=== PATIENT | female | born 1990 | race Caucasian/White ===

== ENCOUNTER → 2020-08-05 14:50 | Outpatient (BNVA) | payer MEDICAID, SELFPAY | PROVIDERS: PCP Nurse Practitioner Family; Visit Provider Advanced Practice Midwife | DX: N92.6 Irregular menstruation, unspecified (principal); Z32.01 Encounter for pregnancy test, result positive | CPT/HCPCS: 81025; 99212 ==

== ENCOUNTER 2020-08-10 13:19 | Outpatient (REF) | payer MEDICAID, SELFPAY ==
--- NOTE | 2020-08-10 13:24 | US_ITS ---
EXAMINATION: US PELVIS CLINICAL INFORMATION: Pelvic and perineal pain. COMPARISON: None TECHNIQUE: Ultrasound of the pelvis is performed using both transabdominal and transvaginal transducers along with Doppler. Transvaginal imaging is performed due to inadequate visualization transabdominally. FINDINGS: There is anteverted uterus with a small questionable anechoic area within the fundal endometrial canal measuring 0.3 x 0.31 x 0.32 cm corresponding 4 weeks and 6 days. No pole, motion, heart beat or yolk sac seen at this time. This could be too early in . Right ovary measures 3.7 x 1.8 x 2.0 cm. There is anechoic cyst measuring 0.9 x 1.0 x 0.9 cm. Left ovary measures 2.6 x 1.7 x 2.4 cm. The left ovary has a irregular appearance. No focal lesion seen. There is no adnexal mass. There is no free fluid in the cul-de-sac. US/US transvaginal IMPRESSION: 1. Anechoic cyst in the fundus likely gestational sac, too early in . No pole or yolk sac seen. Recommend follow-up ultrasound in 2-4 weeks. 2. Small cyst right ovary. Unremarkable left ovary. 3. No free fluid in cul-de-sac.
--- NOTE | 2020-08-10 13:24 | US_ITS ---
EXAMINATION: US PELVIS CLINICAL INFORMATION: Pelvic and perineal pain. COMPARISON: None TECHNIQUE: Ultrasound of the pelvis is performed using both transabdominal and transvaginal transducers along with Doppler. Transvaginal imaging is performed due to inadequate visualization transabdominally. FINDINGS: There is anteverted uterus with a small questionable anechoic area within the fundal endometrial canal measuring 0.3 x 0.31 x 0.32 cm corresponding 4 weeks and 6 days. No pole, motion, heart beat or yolk sac seen at this time. This could be too early in . Right ovary measures 3.7 x 1.8 x 2.0 cm. There is anechoic cyst measuring 0.9 x 1.0 x 0.9 cm. Left ovary measures 2.6 x 1.7 x 2.4 cm. The left ovary has a irregular appearance. No focal lesion seen. There is no adnexal mass. There is no free fluid in the cul-de-sac. US/US OB limited IMPRESSION: 1. Anechoic cyst in the fundus likely gestational sac, too early in . No pole or yolk sac seen. Recommend follow-up ultrasound in 2-4 weeks. 2. Small cyst right ovary. Unremarkable left ovary. 3. No free fluid in cul-de-sac.
== END 2020-08-10 13:20 | disposition home or self-care (01) ==
LOC: HO.US 13:19
PROVIDERS: Visit Provider Advanced Practice Midwife
DX: O20.0 Threatened abortion (principal); N92.6 Irregular menstruation, unspecified; R10.2 Pelvic and perineal pain
CPT/HCPCS: 76815; 76830

== ENCOUNTER 2020-08-11 11:06 | Outpatient (REF) | payer MEDICAID, SELFPAY ==
[2020-08-11 12:45] LABS: Hematocrit 35.8 % (37-47); Mean Corpuscular HGB Conc 33.5 g/dl (31.0-35.0); Mean Corpuscular Volume 86.5 fL (80-98); Mean Platelet Volume 9.8 fL (9.4-12.3); Platelet Count 273 X10*3/uL (160-400); Red Blood Count 4.14 X10*6/uL (4.20-5.50); Red Cell Distribution Width 13.9 % (11.0-16.0); White Blood Count 7.1 X10*3/uL (4.8-10.8)
[2020-08-11 13:13] LABS: HCG Quantitative 485 mIU/mL
== END 2020-08-11 11:07 | disposition home or self-care (01) ==
LOC: HO.LAB 11:06
PROVIDERS: PCP Nurse Practitioner Family; Visit Provider Advanced Practice Midwife
DX: O26.899 Other specified pregnancy related conditions, unspecified trimester (principal); O20.9 Hemorrhage in early pregnancy, unspecified; Z67.91 Unspecified blood type, Rh negative
CPT/HCPCS: 36415; 81003; 84702; 85027; 86850; 86900; 86901; 96372; 99212

== ENCOUNTER 2020-08-13 08:31 | Outpatient (REF) | payer MEDICAID, SELFPAY ==
[2020-08-13 09:10] LABS: Glucose Urine UA NEG (NEG); Leukocyte Esterase Urine TRACE (NEG); Nitrite Urine NEG (NEG); Specific Gravity - Urine 1.025 (1.005-1.025); Urine Blood 3+ (NEG); Urine Ketones NEG (NEG); Urine Protein NEG (NEG-TRACE)
[2020-08-13 09:11] LABS: Appearance Urine CLOUDY; Color Urine YELLOW
[2020-08-13 09:17] LABS: Bacteria Urine 2+ /LPF; Squamous Epithelial Cell Urine 3+ /LPF
[2020-08-13 09:47] LABS: HCG Quantitative 125 mIU/mL
== END 2020-08-13 08:32 | disposition home or self-care (01) ==
LOC: HO.LAB 08:31
PROVIDERS: Visit Provider Advanced Practice Midwife
DX: O20.9 Hemorrhage in early pregnancy, unspecified (principal)
CPT/HCPCS: 81001; 84702; 86850; 86870; 86885; 86900; 86901

== ENCOUNTER 2020-08-20 13:06 | Outpatient (REF) | payer MEDICAID, SELFPAY ==
[2020-08-20 14:24] LABS: Glucose Urine UA NEG (NEG); Leukocyte Esterase Urine 3+ (NEG); Nitrite Urine NEG (NEG); PH 6.5 (5.0-8.0); Specific Gravity - Urine 1.025 (1.005-1.025); Urine Blood TRACE (NEG); Urine Ketones NEG (NEG); Urine Protein NEG (NEG-TRACE)
[2020-08-20 14:26] LABS: Appearance Urine CLEAR; Color Urine YELLOW
[2020-08-20 14:45] LABS: Amorphous Sediment Urine 3+ /LPF; Bacteria Urine 1+ /LPF; Mucus Urine 1+ /LPF; Squamous Epithelial Cell Urine 2+ /LPF; WBC Urine 50-75 /HPF (0-4)
[2020-08-20 15:14] LABS: HCG Quantitative 7 mIU/mL
== END 2020-08-20 13:07 | disposition home or self-care (01) ==
LOC: HO.LAB 13:06
PROVIDERS: Visit Provider Advanced Practice Midwife
DX: O03.9 Complete or unspecified spontaneous abortion without complication (principal); R79.89 Other specified abnormal findings of blood chemistry
CPT/HCPCS: 81001; 84702

== ENCOUNTER 2020-09-03 15:11 | Outpatient (REF) | payer MEDICAID, SELFPAY ==
[2020-09-03 16:10] LABS: HCG Quantitative < 2 mIU/mL
== END 2020-09-03 15:12 | disposition home or self-care (01) ==
LOC: HO.LAB 15:11
PROVIDERS: Visit Provider Advanced Practice Midwife
DX: O03.9 Complete or unspecified spontaneous abortion without complication (principal)
CPT/HCPCS: 36415; 84702

== ENCOUNTER 2020-12-03 10:32 | Outpatient (REF) | payer MEDICAID, SELFPAY ==
[2020-12-03 15:15] LABS: CT PCR NOT DETECTED (Not Detect.)
[2020-12-03 15:16] LABS: NG PCR NOT DETECTED (Not Detect.)
[2020-12-04 10:59] LABS: BV Int Neg Control Negative (Negative); BV Int Pos Control Positive (Positive)
== END 2020-12-03 10:33 | disposition home or self-care (01) ==
LOC: HO.LAB 10:32
PROVIDERS: Visit Provider Advanced Practice Midwife
DX: Z11.3 Encounter for screening for infections with a predominantly sexual mode of transmission (principal); N85.2 Hypertrophy of uterus; N92.6 Irregular menstruation, unspecified; Z20.2 Contact with and (suspected) exposure to infections with a predominantly sexual mode of transmission
CPT/HCPCS: 81025; 87480; 87491; 87510; 87591; 87660; 99212

== ENCOUNTER 2020-12-18 08:45 | Outpatient (REF) | payer MEDICAID, SELFPAY ==
--- NOTE | ~2020-12-18 | US_ITS ---
EXAMINATION: US PELVIS, COMPLETE CLINICAL INFORMATION: Uterine hypertrophy COMPARISON: Ultrasound 08/10/2020 TECHNIQUE: Transabdominal and transvaginal imaging was performed. FINDINGS: LMP: 12/10/2020 Uterus is anteverted measuring 9.8 x 4.3 x 5.4 cm. Few small nonspecific echogenic foci within the uterine myometrium. Endometrial thickness 0.8 cm. Right ovary measures 3.3 x 2.1 x 2.8 cm. Volume 10.5 mL. There is a 2.3 cm cyst with internal curvilinear echogenic focus perhaps septation. No significant vascularity. Additional follicles otherwise seen.. Left ovary measures 2.5 x 1.9 x 2.6 cm. cm. Volume 6.6 mL. Left ovary appears unremarkable. No free fluid in the cul-de-sac. US/US pelvic and transvaginal IMPRESSION: 1. There is a right ovarian 2.3 cm complex cyst with apparent internal septation. Recommend follow-up ultrasound in 6-8 weeks for reassessment. 2. Nonspecific small echogenic foci within the uterine myometrium.
== END 2020-12-18 08:46 | disposition home or self-care (01) ==
LOC: HO.HMGCX 08:45
PROVIDERS: Visit Provider Advanced Practice Midwife
DX: N85.2 Hypertrophy of uterus (principal)
CPT/HCPCS: 76830; 76856

== ENCOUNTER → 2020-12-23 15:20 | Outpatient (BNVA) | payer MEDICAID, SELFPAY | PROVIDERS: Visit Provider Advanced Practice Midwife ==

== ENCOUNTER 2021-03-15 13:33 | Outpatient (REF) | payer MEDICAID, SELFPAY ==
--- NOTE | ~2021-03-15 | US_ITS ---
EXAMINATION: PELVIC ULTRASOUND CLINICAL INFORMATION: Follow-up right ovarian cyst COMPARISON: Previous pelvic ultrasound 12/18/2020 TECHNIQUE: Transabdominal and transvaginal pelvic ultrasound was performed. Transvaginal exam was performed for better visualization of the uterus and ovaries. FINDINGS: The uterus is anteverted and measures 8.6 x 3.8 x 5.3 cm in dimension. There are several small calcifications seen in the uterus near the endometrium. No focal uterine lesion is seen. Endometrial thickness is normal measuring 0.4 cm. There are nabothian cysts in the cervix. The ovaries are normal-appearing. The right ovary measures 3.5 x 2.2 x 2 cm and the left ovary measures 2.9 x 1.7 x 2 cm. The previously identified 2.3 x 1.6 x 1.9 cm right ovarian cyst with daughter cyst on November 2020 is no longer seen. There is no fluid in the pelvis. US/US pelvic and transvaginal IMPRESSION: Small uterine calcifications near the endometrium. Otherwise normal pelvic ultrasound. No ovarian cyst seen.
== END 2021-03-15 13:34 | disposition home or self-care (01) ==
LOC: HO.US 13:33
PROVIDERS: Visit Provider Advanced Practice Midwife
DX: N83.291 Other ovarian cyst, right side (principal)
CPT/HCPCS: 76830; 76856

== ENCOUNTER → 2021-03-29 13:45 | Outpatient (BNVA) | payer MEDICAID, SELFPAY | PROVIDERS: Visit Provider Advanced Practice Midwife ==

== ENCOUNTER 2021-09-01 13:25 | Outpatient (REF) | payer MEDICAID, SELFPAY ==
[2021-09-01 14:35] LABS: HCG Quantitative < 2 mIU/mL
== END 2021-09-01 13:26 | disposition home or self-care (01) ==
LOC: HO.LAB 13:25
PROVIDERS: Visit Provider Advanced Practice Midwife
DX: O20.0 Threatened abortion (principal)
CPT/HCPCS: 36415; 84702

== ENCOUNTER 2021-12-09 14:37 | Outpatient (REF) | payer MEDICAID, SELFPAY ==
[2021-12-10 03:15] LABS: CT PCR NOT DETECTED (Not Detect.); NG PCR NOT DETECTED (Not Detect.)
[2021-12-10 09:24] LABS: BV Int Neg Control Negative (Negative); BV Int Pos Control Positive (Positive)
[2021-12-17 04:56] LABS: HPV mRNA E6/E7 rflx Detected (Not Detected)
[2021-12-17 05:01] LABS: HPV 16 RNA NOT DETECTED (NOT DETECTED)
== END 2021-12-09 14:38 | disposition home or self-care (01) ==
LOC: HO.LAB 14:37
PROVIDERS: Visit Provider Advanced Practice Midwife
DX: Z01.419 Encounter for gynecological examination (general) (routine) without abnormal findings (principal); Z11.51 Encounter for screening for human papillomavirus (HPV); Z20.2 Contact with and (suspected) exposure to infections with a predominantly sexual mode of transmission
CPT/HCPCS: 87480; 87491; 87510; 87591; 87624; 87625; 87660; 88142

== ENCOUNTER 2022-01-14 11:56 | Outpatient (REF) | payer MEDICAID, SELFPAY ==
[2022-01-14 13:35] LABS: Syphilis Screen Nonreactive (Nonreactive)
[2022-01-18 08:16] LABS: HBsAGNum1 0.27 S/CO (0.00-0.99); HIV AB/AG Nonreactive (Nonreactive); Hepatitis B Surface Antigen Negative (Negative); ~HepC Num1 0.15 S/CO (0.00-0.79); ~Hepatitis C Antibody Nonreactive (Nonreactive)
== END 2022-01-14 11:57 | disposition home or self-care (01) ==
LOC: HO.LAB 11:56
PROVIDERS: Visit Provider Advanced Practice Midwife
DX: Z01.419 Encounter for gynecological examination (general) (routine) without abnormal findings (principal); Z11.4 Encounter for screening for human immunodeficiency virus [HIV]; Z20.2 Contact with and (suspected) exposure to infections with a predominantly sexual mode of transmission
CPT/HCPCS: 36415; 86780; 86803; 87340; 87389

== ENCOUNTER 2022-05-26 10:06 | Outpatient (REF) | payer MEDICAID, SELFPAY ==
[2022-05-27 06:21] LABS: CT PCR NOT DETECTED (Not Detect.); NG PCR NOT DETECTED (Not Detect.)
== END 2022-05-26 10:07 | disposition home or self-care (01) ==
LOC: HO.LNP 10:06
PROVIDERS: Visit Provider Obstetrics & Gynecology
DX: Z34.90 Encounter for supervision of normal pregnancy, unspecified, unspecified trimester (principal); R87.820 Cervical low risk human papillomavirus (HPV) DNA test positive
CPT/HCPCS: 87491; 87591; 99212

== ENCOUNTER 2023-03-20 11:09 | Outpatient (REF) | payer MEDICAID, SELFPAY ==
--- NOTE | ~2023-03-20 | XR_ITS ---
EXAMINATION: XR WRIST, LEFT CLINICAL INFORMATION: Pain COMPARISON: None available. TECHNIQUE: 4 views of the left wrist FINDINGS: No acute visible fracture or dislocation. Joint spaces and alignment are maintained. Soft tissues are unremarkable. XR/XR wrist LT w scaphoid IMPRESSION: No acute visible fracture or dislocation.
== END 2023-03-20 11:10 | disposition home or self-care (01) ==
LOC: HO.HHCX 11:09
PROVIDERS: Visit Provider Registered Nurse
DX: M25.532 Pain in left wrist (principal)
CPT/HCPCS: 73110

== ENCOUNTER 2024-11-25 15:05 | Outpatient (REF) | payer MEDICAID, SELFPAY ==
--- NOTE | ~2024-11-25 | US_ITS ---
EXAMINATION: US LEFT GLUTEAL REGION, LIMITED/FOLLOW UP CLINICAL INFORMATION: Mass in the left buttock. COMPARISON: None available. TECHNIQUE: Real-time ultrasound of the region of concern using linear transducer with grayscale and color Doppler technique. FINDINGS: 1.8 cm ovoid shaped hypoechoic soft tissue without flow on color Doppler interrogation. US/US pelvic limited IMPRESSION: 1.8 cm, nonvascular soft tissue lesion. Electronically signed by: Nam Alexander MD 11/26/2024 07:34 AM EDT
--- OUTSIDE RECORDS SUMMARY | 2024-11-25 17:56 | XMS_ITS | Encounter Summary ---
Author Organization [employer] Address [address] [facility] 7 [place] [address] Care Team Providers Care Principal Cyber Engineer Name Role Phone Alyssa Soler MANAGER BAR Primary Care Provider [phone] Tania Espinoza Primary Care Provider [phone] SaulNelia MANAGER BAR Primary Care Provider [phone] Reason for Visit * Reason Onset Date Comments triage 10/12/2022 Encounter Details Date Type Department Care Team (Late st Contact Info) Description 10/12/2022 Telephone [facility] [address] [place] [id number] Alyssa Soler FNP [address] [place] [address] Dept [place] [address] triage Social History Tobacco Use Types Packs/Day Years Used Date Smoking Tobacco: Never Assessed Comments Unknown Sex and Gender Information Value Date Recorded Sex Assigned at Female 06/20/2022 10:16 AM EDT Legal Sex Female 10:16 AM EDT Gender Identity Female 06/20/2022 10:16 AM EDT Sexual Orientation Straight 06/20/2022 10 :16 AM EDT COVID-19 Exposure Response Date Recorded In the last 10 days, have yo u been in contact with someone who was confirmed or suspected to have Coronavirus/COVID-19? No / Unsure 09/30/2022 8:50 AM EST documented as of this encounter Miscellaneous Notes * Telephone Encounter - Kimberli Ramires RN - 10/12/2022 2:41 PM EST Called pt to triage, spoke to pt. Pt declines triage at this time and is calling today due to recent medication refill. Pt states when she received her medications from the pharmacy, she received Zyrtec instead of Yuni which works better for her. Advised will send task to blue team nurses to follow up per PCP. Pt understands and agrees with plan. * Telephone Encounter - Sterling Carlos - 10/12/2022 1:46 PM EST Symptom: Medication Question Outcome: Schedule an urgent appointment (within 4 hours) or talk to a nurse or provider soon Reason: New prescription question The caller accepted this outcome documented in this encounter Plan of Treatment Not on file documented as of this encounter Visit Diagnoses Not on filedocumented in this encounter Care Teams Principal Cyber Engineer Relationship Specialty Start Date End Date Alyssa Soler FNP PCP - General Family Medicine 02/22/22 05/24/23 Tania Espinoza ANP [address] [place] [address] PCP - General Family Medicine 05/25/23 11/01/23 ViennaeNlia FNP [address] [place] [address] PCP - General Family Medicine 08/26/24 Camryn Castellano Fuel System Maintenance Worker 11/06/24 documented as of this encounter
--- OUTSIDE RECORDS SUMMARY | 2024-11-25 17:56 | XMS_ITS | Encounter Summary ---
Author Organization [employer] Address [address] [facility] [address] [place] [address] Care Team Providers Care Celery Tier Name Role Phone [facility] Primary Care Provider [phone] Encounter Details Date Type Department Care Team (Late st Contact Info) Description 04/24/2024 Orders Only [facility] [address] [place], [place] [id number] ProviderWesley MD Social History Tobacco Use Types Packs/Day Years Used Date Smoking Tobacco: Never Smokeless Tobacco: Never Alcohol Use Standard Drinks/Week Comments Not Currently 0 (1 standard drink = 0.6 oz pur e alcohol) Depression Answer Date Recorded Patient Health Questionnaire-9 Score 0 03/14/2023 Housing Stability Answer Date Recorded What is your housing situation today? I have hayden lino 06/07/[address] you li ve. Do you have problems with any of the following? None of the above 06/07/2023 Food Insecurity Answer Date Recorded Within the past 12 months, y ou worried that your food would run out before you got money to buy more: Never True 06/07/2023 Within the past 12 months,th e food you bought just didn't last and you didn't have enough money to get more: Never True Transportation Answer Date Recorded In the past 12 months, has l ack of transportation kept you from medical appts, meetings, work or from getting things needed for daily living? No 06/07/2023 Utilities Answer Date Recorded In the past 12 months, has t he electric, gas, oil or water company threatened to shut off services in your home? No 06/07/2023 Depression Answer Date Recorded Patient Health Questionnaire-2 Score 0 03/14/2023 Comments Yes Sex and Gender Information Value Date Recorded Sex Assigned at Female 06/20/2022 10:16 AM EDT Legal Sex Female 10:16 AM EDT Gender Identity Female 06/20/2022 10:16 AM EDT Sexual Orientation Straight 06/20/2022 10 :16 AM EDT documented as of this encounter Plan of Treatment Not on file documented as of this encounter Visit Diagnoses Not on filedocumented in this encounter Additional Health Concerns Assessment Noted Time PHQ-9 Depression Total Score: 0 03/14/20 23 2:29 PM EDT documented as of this encounter Care Teams Celery Tier Relationship Specialty Start Date End Date Nelia Hughes FNP [address] [place] [id number] PCP - General Family Medicine 08/26/24 Camryn Castellano Legal Office Administrator 11/06/24 documented as of this encounter
--- OUTSIDE RECORDS SUMMARY | 2024-11-25 17:56 | XMS_ITS | Encounter Summary ---
Author Organization [employer] Address [address] [facility] 7 [place] [address] Care Team Providers Care Production Broacher Name Role Phone [facility] Primary Care Provider [phone] Reason for Visit * Reason Onset Date Comments Care Management 11/20/2024 [facility] follow up c all Encounter Details Date Type Department Care Team ([facility] st Contact Info) Description 11/20/2024 Telephone [facility] [address] [place], [place] [phone] [facility] [address] [place] [address] Care Management ([facility] follow up call) Social History Tobacco Use Types Packs/Day Years Used Date Smoking Tobacco: Never Smokeless Tobacco: Never Alcohol Use Standard Drinks/Week Comments Not Currently 0 (1 standard drink = 0.6 oz pur e alcohol) Depression Answer Date Recorded Patient Health Questionnaire-9 Score 0 03/14/2023 Housing Stability Answer Date Recorded What is your housing situation today? I have hayden lino 09/06/[address] you li ve. Do you have problems with any of the following? None of the above 09/06/2024 Food Insecurity Answer Date Recorded Within the past 12 months, y ou worried that your food would run out before you got money to buy more: Never True 09/06/2024 Within the past 12 months,th e food you bought just didn't last and you didn't have enough money to get more: Never True Transportation Answer Date Recorded In the past 12 months, has l ack of transportation kept you from medical appts, meetings, work or from getting things needed for daily living? Yes, it has kept me from medical appointments or getting medications. 09/06/2024 Utilities Answer Date Recorded In the past 12 months, has t he electric, gas, oil or water company threatened to shut off services in your home? No 09/06/2024 Depression Answer Date Recorded Patient Health Questionnaire-2 Score 0 03/14/2023 Internet Access Answer Date Recorded Internet Access Q1 Yes 09/06/2024 Internet Access Q2 Not on file 09/06/2024 Comments No Sex and Gender Information Value Date Recorded Sex Assigned at Female 06/20/2022 10:16 AM EDT Legal Sex Female 10:16 AM EDT Gender Identity Female 06/20/2022 10:16 AM EDT Sexual Orientation Straight 06/20/2022 10 :16 AM EDT documented as of this encounter Miscellaneous Notes * Telephone Encounter - Camryn Castellano - 11/20/2024 11:53 AM EDT CM Camryn Castellano RN placed outbound call to patient. Patient's name, and address confirmed.Patient states is doing well with no recent illnesses or emergency room visits. Patient and are doing well. Care Information Associate notified patient that prescription for yasmany sent to [facility]. Patient is healing well and attended appointment. Patient signed consent for tubal ligation and is waiting for date for procedure. Patient states that she is doing well emotionally. No further questions or concerns. CM reinforced direct contact information or CHW for any additional questions or concerns. Education provided on [facility] located in [facility]. Patient provided with after-hours line for [facility], , which offer night time triage service and option to transfer to radio station engineer provider if needed. Patient verbalizes understanding, and able to repeat back to parts data writer. A follow up call will be placed within 10 days, patientagrees with plan. documented in this encounter Plan of Treatment Not on file documented as of this encounter Visit Diagnoses Not on filedocumented in this encounter Additional Health Concerns Assessment Noted Time PHQ-9 Depression Total Score: 0 03/14/20 23 2:29 PM EDT documented as of this encounter Care Teams Production Broacher Relationship Specialty Start Date End Date FraminghamNelia FNP [address] [place] [id number] PCP - General Family Medicine 08/26/24 Camryn Castellano Care Information Associate 11/06/24 documented as of this encounter
--- OUTSIDE RECORDS SUMMARY | 2024-11-25 17:56 | XMS_ITS | Clinical Summary ---
Author Organization [employer] Address [address] [place] [address] 7[address] [place] [address] Care Team Providers Care Database Specialist Name Role Phone [facility] Primary Care Provider [phone] Allergies Active Allergy Reactions Criticality Noted Date Comments Apple Juice 08/10/2020 Other reaction(s): Itching Castro 08/10/2020 Other reaction(s): Itching Corylus 08/10/2020 Other reaction(s): Sore throat symptom Peanut-Containing Drug Products Angioedema High 03/14/2023 Shrimp Extract 08/10/2020 Tomato 08/10/2020 Medications Aspirin Low Dose 81 MG EC tablet Take 162 mg by mouth in the morning. 3 Active Calcium Antacid 500 MG chewable tablet CHEW 1 TABLET BY MOUTH TWICE DAILY 2 Active FeroSul 325 (65 Fe) MG tablet Take 1 tablet by mouth in the morning. 3 Active 27-1 MG tablet Take 1 tablet by mouth in the morning. 3 Active omeprazole (PriLOSEC) [address] capsuleIndicatio ns:Gastroesophag eal reflux disease without esophagitis TAKE 1 CAPSULE BY MOUTH EVERY DAY BEFORE A MEAL 90 capsule 3 Active fluticasone (Flonase) 50 MCG/ACT nasal sprayIndications :Non-seasonal allergic rhinitis, unspecified trigger,Pregnanc y rhinitis INSTILL 2 SPRAYS IN EACH NOSTRIL ONCE DAILY IN THE MORNING. 48 g 1 3 Active Eye Itch Relief 0.025 % ophthalmic solutionIndicati ons:Non-seasonal allergic rhinitis, unspecified trigger,Pregnanc y rhinitis INSTILL 1 DROP INTO THE AFFECTED EYE(S) EVERY TWELVE HOURS 10 mL 2 3 Active EPINEPHrine (Epipen) 0.3 MG/0.3ML injection syringeIndicatio ns:Multiple food allergies Inject 0.3 mL (0.3 mg) as directed 1 (one) time for 1 dose. 0.3 mL 5 Active fexofenadine (Yasmany) 180 MG tabletIndication s:Non-seasonal allergic rhinitis, unspecified trigger Take 1 tablet (180 mg) by mouth Once per day. 30 tablet 11 5 11/09/19 26 Active Active Problems Problem Noted Date Diagnosed Date Multiple food allergies 08/26/2024 Early stage of 04/03/2024 Lump of skin 04/01/2023 Overview (04/01/2023): Continued swelling left buttock Pt fell on 09/20/22 while walking down the stairs, ice outside the home. Landed on bottom stair on her left buttock. Evaluated by OB and cleared. Bruising and swelling. Area feels numb. No pain with walking Aggravated by sitting and lying on that side No red flag signs of bowel/bladder loss of control, pain radiating down legs Assessment & Plan (04/01/2023 9:18 PM EDT): Lump present on left buttock, pronounced Order US soft tissue F/u 3 months with new PCP Mixed anxiety and depressive disorder 09/30/2022 Vitamin D deficiency 05/24/2017 Allergic rhinitis 01/28/2013 Overview (04/01/2023): Allergic rhinitis improved Still has other allergies Appt secretary specialist May 2023 Assessment & Plan (04/01/2023 9:19 PM EDT): Pt , not Safe to start Yasmany again Rx yasmany F/u PRN Eczema 01/28/2013 Gastroesophageal reflux disease 01/28/2013 Encounters Date Type Department Care Team Description 11/20/2024 Patient Outreach [facility] [address] [place] [address] HarbortonNelia palomino, BODY MAKER Care Coordination (C3CM/CHW ZEE Gunn- Follow up call) 11/20/[address] [address] Nelia Hughes, BODY MAKER Care Management ([facility] follow up call) 11/11/[address] [address] Nelia Hughes, BODY MAKER Care Management ([facility] TC #1-lvm) 11/11/[address] [address] Nelia Hughes BODY MAKER Care Management ([facility] case conference) 11/08/2024 Orders Only [facility] [address] [place] [address] Nelia Hughes BODY MAKER Non-seasonal allergic rhinitis, unspecified trigger (Primary Dx) 11/06/[address] [address] Nelia Hughes BODY MAKER Care Management (C3 initial assessement/enrollm ent) 11/01/2024 Population Health Risk Score [facility] (C3) Department [address] [place] [phone] Provider, Population Health Generic 10/30/2024 Patient Outreach [address] [address] Nelia Hughes, BODY MAKER Care Coordination ([facility]/ZEE Renae- CM Initial Assessment Appt Reminder-LVM) 10/16/2024 Patient Outreach [address] [address] Nelia Hughes, BODY MAKER Care Coordination ([facility]/ZEE Renae- R/S missed IA for CM program) 10/14/[address] [address] Nelia Hughes BODY MAKER Care Management ([facility] initial assessment-unable to lvm) 10/01/2024 Patient Outreach [address] [address] Nelia Hughes BODY MAKER Care Coordination ([facility]/ZEE Renae- Rescheduled misses Initial assessment appt with CM Program) 09/30/[address] [address] Camryn Castellano Care Management ([facility] initial assessment-lvm) 09/27/2024 Patient Outreach [address] [address] [facility] Care Coordination ([facility]/ZEE Renae- IA Appt Reminder call) 09/06/2024 Patient Outreach [address] [address] [facility] Care Coordination ([facility]/WILLOW Renae TCX-Buxkssem-Hunquo to Participate ////) 09/06/2024 Patient Outreach [address] [address] [facility] Care Coordination ([facility]/WILLOW Renae ADT Outreach- Agrees to participate) 09/05/[address] [address] Camryn Castellano Care Management ([facility] chart review) from Last 3 Months Social History Tobacco Use Types Packs/Day Years Used Date Smoking Tobacco: Never Smokeless Tobacco: Never Tobacco Cessation:Counseling Given: No Alcohol Use Standard Drinks/Week Comments Not Currently [...] Orientation Straight 06/20/2022 10 :16 AM EDT Last Filed Vital Signs Vital Sign Reading Time Taken Comments Blood Pressure 107/67 03/14/2023 2:26 PM EDT Pulse 84 03/14/2023 2:26 PM EDT Temperature 37.2 ??C (99 ??F) 03/14/2023 2:26 PM EDT Respiratory Rate 17 03/14/2023 2:26 PM EDT Oxygen Saturation 99% 03/14/2023 2:26 PM EDT Inhaled Oxygen Concentration - - Weight 99.8 kg (220 lb) 03/14/2023 2:26 PM EDT Height 162.6 cm (5' 4 ) 03/14/2023 2:26 PM EDT Body Mass Index 37.76 03/14/2023 2:26 PM EDT Plan of Treatment Health Maintenance Due Date Last Done Comments Alcohol/Substance Use Screening 2001 Family Planning (PISQ) 2004 Pap Smear 2010 Cervical Cancer Screening 2019 HPV/Cotest 2019 Depression Screening 03/14/2024 03/14/2023, 03/14/20 COVID-19 Vaccine ( season) 2024 04/28/2021, 04/07/2021 Lipid Panel 04/13/2025 04/13/2020 Tobacco Screening 08/26/2025 08/26/2024 SDOH Screening 09/06/2025 09/06/2024 DTaP/Tdap/Td Vaccines (10 - Td or Tdap) 06/18/2034 06/18/2024, 10/11/2022, 05/06/2015, Additional history exists Zoster Vaccines (1 of 2) 2039 RSV Patients and Patients Aged 60 years or older (1 - 1-dose 75+ series) 2064 HIB Vaccines Completed 11/01/1990 Hepatitis B Vaccines Completed 06/16/1993, 10/09/1992, 09/08/1992 IPV Vaccines Completed 12/13/1993, 01/19, 1989, Additional history exists HIV Screening Completed 04/13/2020 Hepatitis C Screening Completed 04/13/2020 Influenza Vaccine Completed 05/16/2024, , 06/23/2022, Additional history exists HPV Vaccines Aged Out No longer eligi ble based on patient's age to complete this topic Hepatitis A Vaccines Aged Out No long er eligible based on patient's age to complete this topic Meningococcal Vaccine Aged Out No brynn sav eligible based on patient's age to complete this topic Pneumococcal Vaccine: Pediatrics (0 to 5 Years) and At-Risk Patients (6 to 49) Years) Aged Out No longer eligible based on patient's age to complete this topic RSV under 20 months Aged Out No longe r eligible based on patient's age to complete this topic Rotavirus Vaccines Aged Out No longer eligible based on patient's age to complete this topic Procedures Procedure Name Priority Date/Time Associated Diagnosis Comments ZZZ HISTORICAL HEPATITIS C AB W/REFL TO HCV RNA, QN, PCR Routine 04/13/2020 1:46 PM EDT HIV 1/2 ANTIGEN/ANTIBODY, FOURTH GENERATION W/RFL Routine 04/13/2020 1:46 PM EDT LIPID PANEL, STANDARD Routine 04/13/2020 1:46 PM EDT from Last 3 Months or Most Recently Relevant to Health Maintenance Results * HEPATITIS C AB W/REFL TO HCV RNA, QN, PCR (04/13/2020 1:46 PM EDT) HEPATITIS C ANTIBODY NON-REACT ZAHRAA NON-REACT ZAHRAA [facility] INDEX 0.02 <1.00 [facility] Comment: ?? HCV antibody was non-reactive. There is no laboratory ?? evidence of HCV infection. ?? In most cases, no further action is required. However, if recent HCV exposure is suspected, a test for HCV RNA (test code 03451) is suggested. ?? For additional information please refer to http://[employer]/faq/WLU59e6 (This link is being provided for informational/ educational purposes only.) ?? HEPATITIS C ANTIBODY NON-REACT ZAHRAA NON-REACT ZAHRAA [facility] INDEX 0.02 <1.00 [facility] Comment: ?? HCV antibody was non-reactive. There is no laboratory ?? evidence of HCV infection. ?? In most cases, no further action is required. However, if recent HCV exposure is suspected, a test for HCV RNA (test code 37538) is suggested. ?? For additional information please refer to http://[employer]/faq/CVE21a5 (This link is being provided for informational/ educational purposes only.) ?? HEPATITIS C ANTIBODY NON-REACT ZAHRAA NON-REACT ZAHRAA [facility] INDEX 0.02 <1.00 [facility] Comment: ?? HCV antibody was non-reactive. There is no laboratory ?? evidence of HCV infection. ?? In most cases, no further action is required. However, if recent HCV exposure is suspected, a test for HCV RNA (test code 33510) is suggested. ?? For additional information please refer to http://[employer]/faq/ZHN58k0 (This link is being provided for informational/ educational purposes only.) ?? HEPATITIS C ANTIBODY NON-REACT ZAHRAA NON-REACT Z[facility]HRAA [facility] INDEX 0.02 <1.00 [facility] Comment: ?? HCV antibody was non-reactive. There is no laboratory ?? evidence of HCV infection. ?? In most cases, no further action is required. However, if recent HCV exposure is suspected, a test for HCV RNA (test code 95486) is suggested. ?? For additional information please refer to http://[employer]/faq/LTT70p3 (This link is being provided for informational/ educational purposes only.) ?? 04/13/2020 1:46 PM EDT Enrique Thayer BODY MAKER HISTORICAL/NON ORDERABLE LABS Final Result [facility] [address] * HIV 1/2 ANTIGEN/ANTIBODY,FOURTH GENERATION W/RFL (04/13/2020 1:46 PM EDT) HIV-1/2 ANTIGEN AND ANTIBODIES, 4TH GENERATION W/ REFLEX NON-REACT ZA[facility]AA NON-REACT [facility] Comment: HIV-1 antigen and HIV-1/HIV-2 antibodies were not detected. There is no laboratory evidence of HIV infection. ?? PLEASE NOTE: This information has been disclosed to you from records whose confidentiality may be protected by state law. ??If your state requires such protection, then the state law prohibits you from making any further disclosure of the information without the specific written consent of the person to whom it pertains, or as otherwise permitted by law. A general authorization for the release of medical or other information is NOT sufficient for this purpose. ? For additional information please refer to http://[employer]/faq/OKS477 (This link is being provided for informational/ educational purposes only.) ? The performance of this assay has not been clinically validated in patients less than 2 years old. ?? HIV-1/2 ANTIGEN AND ANTIBODIES, 4TH GENERATION W/ REFLEX NON-REACT ZAHRAA NON-REACT ZAHRAA [facility] Comment: HIV-1 antigen and HIV-1/HIV-2 antibodies were not detected. There is no laboratory evidence of HIV infection. ?? PLEASE NOTE: This information has been disclosed to you from records whose confidentiality may be protected by state law. ??If your state requires such protection, then the state law prohibits you from making any further disclosure of the information without the specific written consent of the person to whom it pertains, or as otherwise permitted by law. A general authorization for the release of medical or other information is NOT sufficient for this purpose. ? For additional information please refer to http://[employer]/faq/FCL103 (This link is being provided for informational/ educational purposes only.) ? The performance of this assay has not been clinically validated in patients less than 2 years old. ?? HIV-1/2 ANTIGEN AND ANTIBODIES, 4TH GENERATION W/ REFLEX NON-REACT Z[facility]AA NON-REACT [facility] Comment: HIV-1 antigen and HIV-1/HIV-2 antibodies were not detected. There is no laboratory evidence of HIV infection. ?? PLEASE NOTE: This information has been disclosed to you from records whose confidentiality may be protected by state law. ??If your state requires such protection, then the state law prohibits you from making any further disclosure of the information without the specific written consent of the person to whom it pertains, or as otherwise permitted by law. A general authorization for the release of medical or other information is NOT sufficient for this purpose. ? For additional information please refer to http://[employer]/faq/LIO299 (This link is being provided for informational/ educational purposes only.) ? The performance of this assay has not been clinically validated in patients less than 2 years old. ?? HIV-1/2 ANTIGEN AND ANTIBODIES, 4TH GENERATION W/ REFLEX NON-REACT ZAHRAA NON-REACT [facility] Comment: HIV-1 antigen and HIV-1/HIV-2 antibodies were not detected. There is no laboratory evidence of HIV infection. ?? PLEASE NOTE: This information has been disclosed to you from records whose confidentiality may be protected by state law. ??If your state requires such protection, then the state law prohibits you from making any further disclosure of the information without the specific written consent of the person to whom it pertains, or as otherwise permitted by law. A general authorization for the release of medical or other information is NOT sufficient for this purpose. ? For additional information please refer to http://[employer]/faq/GIF094 (This link is being provided for informational/ educational purposes only.) ? The performance of this assay has not been clinically validated in patients less than 2 years old. ?? HIV-1/2 ANTIGEN AND ANTIBODIES, 4TH GENERATION W/ REFLEX NON-REACT ZAHRAA NON-REACT [facility] Comment: HIV-1 antigen and HIV-1/HIV-2 antibodies were not detected. There is no laboratory evidence of HIV infection. ?? PLEASE NOTE: This information has been disclosed to you from records whose confidentiality may be protected by state law. ??If your state requires such protection, then the state law prohibits you from making any further disclosure of the information without the specific written consent of the person to whom it pertains, or as otherwise permitted by law. A general authorization for the release of medical or other information is NOT sufficient for this purpose. ? For additional information please refer to http://[employer]/faq/OMW863 (This link is being provided for informational/ educational purposes only.) ? The performance of this assay has not been clinically validated in patients less than 2 years old. ?? 04/13/2020 1:46 PM EDT us Enrique Thayer BODY MAKER LAB BLOOD ORDERABLES Final Res ult [facility] [address] * (ABNORMAL) LIPID PANEL, STANDARD (04/13/2020 1:46 PM EDT) Cholesterol, Total 104 <200 mg/dL [facility] Cholesterol, Total 104 <200 mg/dL [facility] HDL Cholesterol 32(L) > OR = 50 mg/dL [facility] HDL Cholesterol 32(L) > OR = 50 mg/dL [facility] Triglycerides 46 <150 mg/dL [facility] LDL Cholesterol 59 mg/dL (calc) [facility] Comment: Reference range: <100 ?? Desirable range <100 mg/dL for primary prevention; ?? <70 mg/dL for patients with CHD or diabetic patients ?? with > or = 2 CHD risk factors. ?? LDL-C is now calculated using the Aicha ?? calculation, which is a validated novel method providing ?? better accuracy than the Friedewald equation in the ?? estimation of LDL-C. ?? Jarrett REYNOSO et al. MANA. 2013;310(19): 7026-3657 ?? (http://[employer]/faq/DRF987) Triglycerides 46 <150 mg/dL [facility] Chol/HDLC Ratio 3.3 <5.0 (calc) [facility] Cholesterol, Total 104 <200 mg/dL [facility] HDL Cholesterol 32(L) > OR = 50 mg/dL [facility] Non-HDL Cholesterol 72 <130 mg/dL (calc) [facility] Comment: For patients with diabetes plus 1 major ASCVD risk ?? factor, treating to a non-HDL-C goal of <100 mg/dL ?? (LDL-C of <70 mg/dL) is considered a therapeutic ?? option. Triglycerides 46 <150 mg/dL [facility] LDL Cholesterol 59 mg/dL (calc) [facility] Comment: Reference range: <100 ?? Desirable range <100 mg/dL for primary prevention; ?? <70 mg/dL for patients with CHD or diabetic patients ?? with > or = 2 CHD risk factors. ?? LDL-C is now calculated using the Jarrett-Garza ?? calculation, which is a validated novel method providing ?? better accuracy than the Friedewald equation in the ?? estimation of LDL-C. ?? Jarrett SS et al. MANA. 2013;310(19): 6939-9823 ?? (http://[employer]/faq/FFF187) LDL Cholesterol 59 mg/dL (calc) [facility] Comment: Reference range: <100 ?? Desirable range <100 mg/dL for primary prevention; ?? <70 mg/dL for patients with CHD or diabetic patients ?? with > or = 2 CHD risk factors. ?? LDL-C is now calculated using the Jarrett-Garza ?? calculation, which is a validated novel method providing ?? better accuracy than the Friedewald equation in the ?? estimation of LDL-C. ?? Jarrett SS et al. MANA. 2013;310(19): 1881-6071 ?? (http://[employer]/faq/MYB893) Chol/HDLC Ratio 3.3 <5.0 (calc) [facility] Non-HDL Cholesterol 72 <130 mg/dL (calc) [facility] Comment: For patients with diabetes plus 1 major ASCVD risk ?? factor, treating to a non-HDL-C goal of <100 mg/dL ?? (LDL-C of <70 mg/dL) is considered a therapeutic ?? option. Chol/HDLC Ratio 3.3 <5.0 (calc) [facility] Non-HDL Cholesterol 72 <130 mg/dL (calc) [facility] Comment: For patients with diabetes plus 1 major ASCVD risk ?? factor, treating to a non-HDL-C goal of <100 mg/dL ?? (LDL-C of <70 mg/dL) is considered a therapeutic ?? option. 04/13/2020 1:46 PM EDT us Enrique Thayer [facility] LAB BLOOD ORDERABLES Final Res ult [facility] [address] from Last 3 Months or Most Recently Relevant to Health Maintenance [place] [address] [place] [address] C3 Care Teams Database Specialist Relationship Specialty Start Date End Date Nelia Hughes FNP [address] [place] [id number] PCP - General Family Medicine 08/26/24 Camryn Castellano Temporary Staff Accountant 11/06/24
--- OUTSIDE RECORDS SUMMARY | 2024-11-25 17:56 | XMS_ITS | Encounter Summary ---
Author Organization [employer] Address [address] [facility] [address]t [place] [address] Care Team Providers Care Aircraft Maintenance Instructor Name Role Phone Tania Espinoza Primary Care Provider [phone] [facility] PACS SPECIALIST Primary Care Provider [phone] Reason for Visit * Reason Onset Date Comments Transfer Patient Appt 10/25/2023 Encounter Details Date Type Department Care Team ([facility] st Contact Info) Description 10/25/[address] [facility] [address], [place] [phone] Tania Espinoza ANP [address] [place], [place] [phone] Transfer Patient Appt Social History Tobacco Use Types Packs/Day Years [...] Patient Health Questionnaire-2 Score 0 03/14/2023 Comments No Sex and Gender Information Value Date Recorded Sex Assigned at Female 06/20/2022 10:16 AM EDT Legal Sex Female 10:16 AM EDT Gender Identity Female 06/20/2022 10:16 AM EDT Sexual Orientation Straight 06/20/2022 10 :16 AM EDT documented as of this encounter Miscellaneous Notes * Telephone Encounter - Bryon Almanza - 10/25/2023 3:23 PM EST Tc from patient calling to request a appt needs a Transfer Patient appt from Alyssa Soler documented in this encounter Plan of Treatment Not on file documented as of this encounter Visit Diagnoses Not on filedocumented in this encounter Additional Health Concerns Assessment Noted Time PHQ-9 Depression Total Score: 0 03/14/20 23 2:29 PM EDT documented as of this encounter Care Teams Aircraft Maintenance Instructor Relationship Specialty Start Date End Date Tania Espinoza ANP [address] [place] [address] PCP - General Family Medicine 05/25/23 11/01/23 [place] FNP [address] [place] [address] PCP - General Family Medicine 08/26/24 Camryn Castellano Bunch Maker Hand 11/06/24 documented as of this encounter
--- OUTSIDE RECORDS SUMMARY | 2024-11-25 17:56 | XMS_ITS | Encounter Summary ---
Author Organization [employer] Address [address] [facility] [address]t [place] [address] Care Team Providers Care Purchase Analyst Name Role Phone [facility] Primary Care Provider Encounter Details Date Type Department Care Team (Late st Contact Info) Description 04/17/2024 Orders Only [facility] [address] [place], [place] [phone] ProviderWesley MD Social History Tobacco Use Types [...] documented as of this encounter Care Teams Purchase Analyst Relationship Specialty Start Date End Date Nelia Hughes FNP [address] [place] [phone] PCP - General Family Medicine 08/26/24 Camryn Castellano Commercial Carpenter 11/06/24 documented as of this encounter
--- OUTSIDE RECORDS SUMMARY | 2024-11-25 17:56 | XMS_ITS | Encounter Summary ---
Author Organization [employer] Address [address] [facility] 7t [place] [address] Care Team Providers Care High School Agriculture Teacher Name Role Phone [facility] Primary Care Provider [phone] Reason for Visit * Reason Comments Care Coordination LATASHA/ZEE Montoya- Follow up call Encounter Details Date Type Department Care Team (Latest Contact Info) Description 11/20/2024 Patient Outreach [facility]INE [address] [place] [address] [facility] [address] [place] [address] Care Coordination (ZEE Love- Follow up call) Social History Tobacco Use Types [...] AM EDT documented as of this encounter Progress Notes * Yuridia Collins - 11/20/2024 1:52 PM EDT CHW Yuridia Collins, placed outbound call to patient introducing herself calling from [facility]. Patient's name, and address confirmed. CHW followed up on SDOH needs. Per patient, no current SDOH needs at this time. No further questions or concerns. CHW reinforced direct contact information for any additional questions or concerns and extended clinic hours on Mondays and Wednesdays, and Walk-In Urgent Care Located in [facility]. Patient provided with after-hours line for [facility], , which offer night time triage service and option to transfer to donor floor technician provider if needed. Patient verbalizes understanding, and able to repeat back to typewriter assembler. A follow up call will be placed within 10 days, patient agrees with plan. documented in this encounter Plan of Treatment Not on file documented as of this encounter Visit Diagnoses Not on filedocumented in this encounter Additional Health Concerns Assessment Noted Time PHQ-9 Depression Total Score: 0 03/14/20 23 2:29 PM EDT documented as of this encounter Care Teams High School Agriculture Teacher Relationship Specialty Start Date End Date Nelia Hughes FNP [address] [place] [address] PCP - General Family Medicine 08/26/24 Camryn Castellano Locomotive Boilermaker 11/06/24 documented as of this encounter
--- OUTSIDE RECORDS SUMMARY | 2024-11-25 17:56 | XMS_ITS | Clinical Summary ---
Author Organization [facility] ity Address [address] [place] [address] Care Team Providers Care Weaving Inspector Name Role Phone Unavailable Primary Care Provider Unavailabl e Social History Tobacco Use Types Packs/Day Years Used Date Smoking Tobacco: Never Assessed Comments Unknown Sex and Gender Information Value Date Recorded Sex Assigned at Not on file Legal Sex Female 4:52 PM EST Gender Identity Not on file Sexual Orientation Not on file Plan of Treatment Health Maintenance Due Date Last Done Comments DTaP,Tdap,and Td Vaccines (1 - Tdap) 2008 Hepatitis B Vaccines (1 of 3 - 19+ 3-dose series) 2008 Cervical Cancer Screening: P ap Smear 2010 Depression Screening 09/19/2023 HIV Screening 09/19/2023 Hepatitis C Screening 09/19/2023 Social Influencers of Health Screening 09/19/2023 COVID-19 Vaccine (2023-2 5 season) 2024 Influenza Vaccine (#1) 2024 HIB Vaccines Aged Out No longer eligi ble based on patient's age to complete this topic HPV Vaccines Aged Out No longer eligi ble based on patient's age to complete this topic Hepatitis A Vaccines Aged Out No long er eligible based on patient's age to complete this topic IPV Vaccines Aged Out No longer eligi ble based on patient's age to complete this topic MMR Vaccines Aged Out No longer eligi ble based on patient's age to complete this topic Meningococcal ACWY Vaccine Aged Out N o longer eligible based on patient's age to complete this topic Meningococcal B Vaccine Aged Out No l onger eligible based on patient's age to complete this topic Pneumococcal Vaccine: Pediat rics (0 to 5 Years) and At-Risk Patients (6 to 64 Years) Aged Out No longer eligible b ased on patient's age to complete this topic RSV Immunization Patients Un rakesh 20 months Aged Out No longer eligible b ased on patient's age to complete this topic Varicella Vaccines Aged Out No longer eligible based on patient's age to complete this topic
--- OUTSIDE RECORDS SUMMARY | 2024-11-25 17:56 | XMS_ITS | Encounter Summary ---
Author Organization [employer] Address [address] [facility] 7t [place] [address] Care Team Providers Care Development Engineer Name Role Phone [facility] Primary Care Provider [phone] Encounter Details Date Type Department Care Team (Late st Contact Info) Description 04/18/2024 Orders Only [facility] [address] [place], [place] [phone] ProviderWesley MD Social History Tobacco Use Types [...] documented as of this encounter Care Teams Development Engineer Relationship Specialty Start Date End Date Nelia Hughes FNP [address] [place] [address] PCP - General Family Medicine 08/26/24 Camryn Castellano Rn Practitioner 11/06/24 documented as of this encounter
--- OUTSIDE RECORDS SUMMARY | 2024-11-25 17:56 | XMS_ITS | Encounter Summary ---
Author Organization [email or web address] Address [address] [facility] 7t [place] [address] Care Team Providers Care Cabinetmaker Helper Name Role Phone [facility] Primary Care Provider [phone] Encounter Details Date Type Department Care Team (Late st Contact Info) Description 05/02/2024 Orders Only [facility] [address] [place], [place] [id number] ProviderWesley MD Social History Tobacco Use Types [...] documented as of this encounter Care Teams Cabinetmaker Helper Relationship Specialty Start Date End Date Nelia Hughes FNP [address] [place] [address] PCP - General Family Medicine 08/26/24 Camryn Castellano Freight Clerk 11/06/24 documented as of this encounter
== END 2024-11-25 15:06 | disposition home or self-care (01) ==
LOC: HO.US 15:05
PROVIDERS: PCP Registered Nurse; Visit Provider Registered Nurse
DX: R22.9 Localized swelling, mass and lump, unspecified (principal)
CPT/HCPCS: 76857

== ENCOUNTER → 2024-11-25 15:27 | Outpatient (BNV) | payer MEDICAID, SELFPAY | PROVIDERS: PCP Registered Nurse; Visit Provider Radiology Diagnostic Radiology | DX: R22.41 Localized swelling, mass and lump, right lower limb (principal) | CPT/HCPCS: 76857 ==

== ENCOUNTER 2025-03-19 10:06 | Outpatient (REF) | payer MEDICAID, SELFPAY ==
--- OUTSIDE RECORDS SUMMARY | 2025-03-19 10:54 | XMS_ITS | Encounter Summary ---
Author Organization [facility] Address [address] [facility] [address] [place] [address] Phone Care Team Providers Care Rivet Sticker Name Role Phone [facility] Primary Care Provider Encounter Details Date Type Department Care Team (Latest Contact Info) Description 03/27/2024 Ancillary Orders [facility] [address] [place] [address] [place] [address] Hui Ferrer, [facility] [address] [facility], [facility] [address] [place] [address] [email or web address] Hx of shoulder dystocia in prior , currently (Primary Dx); Encounter for supervision of normal first in first trimester; Anxiety; Screening for human immunodeficiency virus; Need for hepatitis C screening test; Multigravida of advanced maternal age in first trimester Social History Tobacco Use Types Packs/Day Years Used Date Smoking Tobacco: Never Smokeless Tobacco: Never Alcohol Use Standard Drinks/Week Comments Not Currently 0 (1 standard drink = 0.6 oz pur e alcohol) Education Answer Date Recorded Are you interested in more education? Not on ishmael e 12/16/2022 Are you concerned about learning? Not on file 12/16/2022 No 12/16/2022 No 12/16/2022 Digital Access Answer Date Recorded No 01/14/2023 No 01/14/2023 Reliable internet access at home? Not on file 01/14/2023 Device with a working camera? Not on file Comments Yes Sex and Gender Information Value Date Recorded Sex Assigned at Female 08/12/2020 1:52 AM EST Legal Sex Female 1:30 AM EST Gender Identity Female 08/12/2020 1:52 AM EST Sexual Orientation Straight 08/12/2020 1: 52 AM EST documented as of this encounter Plan of Treatment Not on file documented as of this encounter Results * US OB GREATER THAN OR EQUAL TO 14 WEEKS LIMITED (03/27/2024 12:26 PM EDT) Anatomical Region Laterality Modality Abdomen, Pelvis, Uterus/Adnexa U ltrasound 03/27/2024 2:25 PM EDT Impressions 03/27/2024 8:30 PM EDT Single live IUP with a sonographic EGA of 16 weeks 2 days and BANDAR of September 09, 2024. The placenta has formed posteriorly. The cervix measures 5.1 cm. Narrative 03/27/2024 8:30 PM EDT Procedure: US OB GREATER THAN OR EQUAL TO 14 WEEKS LIMITED 03/27/2024 11:52 AM US Indications: Uncertain Dates Comparison: No relevant recent comparisons. Maternal age: 33 years. Technique: Transabdominal scan was performed. M-mode imaging was performed to assess cardiac activity. FINDINGS: number: 1 position: Breech. Placental position: Posterior. Placental grade: 1 Heart Rate: 156.0 bpm Cervix: 5.1 cm Reported LMP: Unknown Ultrasound EGA: 16 weeks 2 day(s) Ultrasound BANDAR: [id number] Established BANDAR: [id number] BPD: 3.11 cm, consistent with 15 weeks 6 day(s) Head Circumference: 11.86 cm, consistent with 16 weeks 0 day(s) Abdominal Circumference: 10.06 cm, consistent with 16 weeks 1 day(s) Femur Length: 2.31 cm, consistent with 17 weeks 0 day(s) Humerus: 2.17 cm, consistent with 16 weeks 5 day(s) Estimated weight (EFW): 156.1 grams +/- 6 oz. HC/AC: 1.18 FL/BPD: 0.74 FL/AC: 0.23 Tech Comments: Otero = 16w2d. Active fetus with normal fluid. Procedure Note Hebert Duvall MD - 03/27/2024 Procedure: US OB GREATER THAN OR EQUAL TO 14 WEEKS LIMITED 03/27/2024 11:52AM US Indications: Uncertain Dates Comparison: No relevant recent comparisons. Maternal age: 33 years. Technique: Transabdominal scan was performed. M-mode imaging was performedto assess cardiac activity. FINDINGS: number: 1 position: Breech. Placental position: Posterior. Placental grade: 1 Heart Rate: 156.0 bpm Cervix: 5.1 cm Reported LMP: Unknown Ultrasound EGA: 16 weeks 2 day(s) Ultrasound BANDAR: [id number] Established BANDAR: [id number] BPD: 3.11 cm, consistent with 15 weeks 6 day(s) Head Circumference: 11.86 cm, consistent with 16 weeks 0 day(s) Abdominal Circumference: 10.06 cm, consistent with 16 weeks 1 day(s) Femur Length: 2.31 cm, consistent with 17 weeks 0 day(s) Humerus: 2.17 cm, consistent with 16 weeks 5 day(s) Estimated weight (EFW): 156.1 grams +/- 6 oz. HC/AC: 1.18 FL/BPD: 0.74 FL/AC: 0.23 Tech Comments: Otero = 16w2d. Active fetus with normal fluid. IMPRESSION: Single live IUP with a sonographic EGA of 16 weeks 2 days and BANDAR ofSeptember 09, 2024. The placenta has formed posteriorly. The cervixmeasures 5.1 cm. us Hui Ferrer CN IMG US OBSTETRIC Final Res ult documented in this encounter Visit Diagnoses Diagnosis Encounter for supervision of normal first in first trimester Hx of shoulder dystocia in prior , currently - Primary Encounter for supervision of normal first in first trimester Anxiety Anxiety state, unspecified Screening for human immunodeficiency virus Special screening examination for other specified viral diseases Need for hepatitis C screening test Special screening examination for other specified viral diseases Multigravida of advanced maternal age in first trimester documented in this encounter Care Teams Rivet Sticker Relationship Specialty Start Date End Date [facility] [address] [place] [address] PCP - General 08/12/20 documented as of this encounter Additional Source Comments The information contained in this document represents components of the legal health record. It is not the complete legal health record.[facility]
--- OUTSIDE RECORDS SUMMARY | 2025-03-19 10:54 | XMS_ITS | Clinical Summary ---
Author Organization [facility] ity Address [address] [place] [address] Care Team Providers Care Welder Experimental Name Role Phone Unavailable Primary Care Provider [...] Cervical Cancer Screening: P ap Smear 2010 HIV Screening 09/19/2023 Hepatitis C Screening 09/19/2023 Social Influencers of Health Screening 09/19/2023 COVID-19 Vaccine ( - 2023-2 5 season) 2024 Depression Screening 08/21/2024 Influenza Vaccine (#1) 2025 HIB Vaccines Aged Out No longer eligi [...] 5 Years) and At-Risk Patients (6 to 49 Years) Aged Out No longer eligible b ased on patient's age to complete this topic RSV Immunization Patients Un rakesh 20 months Aged Out No longer eligible b ased on patient's age to complete this topic Varicella Vaccines Aged Out No longer eligible based on patient's age to complete this topic
--- OUTSIDE RECORDS SUMMARY | 2025-03-19 10:54 | XMS_ITS | Encounter Summary ---
Author Organization [employer] Address [address] [address] Care Team Providers Care Post Acute Care Registered Nurse Name Role Phone Alyssa Soler SEWER PIPE SORTER Primary Care Provider [phone] Tania Espinoza Primary Care Provider [phone] Saul, Nelia SEWER PIPE SORTER Primary Care Provider [phone] Reason for Visit * Reason Onset Date Comments triage 10/12/2022 Encounter Details Date Type Department Care Team (Late st Contact Info) Description 10/12/2022 Telephone [facility] [address] [place] [address] Alyssa Soler FNP [address] [place] [address] [place] [address] triage Social History Tobacco Use Types Packs/Day [...] with plan. * Telephone Encounter - Sterling Gonzalez - 10/12/2022 1:46 PM EST Symptom: Medication Question Outcome: Schedule an urgent appointment (within 4 hours) or talk to a nurse or provider soon Reason: New prescription question The caller accepted this outcome documented in this encounter Plan of Treatment Not on file documented as of this encounter Visit Diagnoses Not on filedocumented in this encounter Care Teams Post Acute Care Registered Nurse Relationship Specialty Start Date End Date Alyssa Soler FNP PCP - General Family Medicine 02/22/22 05/24/23 Tania Espinoza ANP [address] [place] [address] PCP - General Family Medicine 05/25/23 11/01/23 BockNelia FNP [address] [place] [address] PCP - General Family Medicine 08/26/24 Camryn Castellano Director Process Improvement 11/06/24 documented as of this encounter
[2025-03-19 13:00] LABS: Hemoglobin A1C 85.9904 umol/L; Total Hemoglobin (HGBA1C) 2583.3894 umol/L
[2025-03-19 13:06] LABS: CT PCR Urine DETECTED (Not Detect.); NG PCR Urine NOT DETECTED (Not Detect.)
[2025-03-19 13:45] LABS: Alanine Aminotransferase 26 U/L (0-31); Albumin Level 3.9 g/dL (3.5-5.0); Alkaline Phosphatase 91 U/L (39-117); Anion Gap 10 (12-20); Aspartate Amino Transferase 39 U/L (5-31); Blood Urea Nitrogen 9 mg/dL (9-16); Calcium 8.6 mg/dL (8.4-10.2); Carbon Dioxide 26 mmol/L (22-29); Chloride 108 mmol/L (96-108); Cholesterol 107 mg/dL (<200); Estimated Glomerular Filt Rate > 60; HDL Cholesterol 33 mg/dL (>40); Potassium 3.9 mmol/L (3.3-5.1); Sodium 140 mmol/L (135-145); Total Protein 7.2 g/dL (6.5-8.0); Triglycerides 44 mg/dL (<150)
[2025-03-20 08:07] LABS: Syphilis Screen Nonreactive (Nonreactive)
[2025-03-20 08:21] LABS: HBS Num1 141.77 mIU/mL (0-7.99); HBc Num1 0.29 S/CO (0.00-0.79); HBsAGNum1 0.39 S/CO (0.00-0.99); HIV Num 1 0.08 S/CO (0.00-0.99); Hepatitis B Surface Antigen Negative (Negative); ~HepC Num1 0.16 S/CO (0.00-0.79); ~Hepatitis B Surface Antibody REACTIVE (Nonreactive); ~Hepatitis C Antibody Nonreactive (Nonreactive)
== END 2025-03-19 10:07 | disposition home or self-care (01) ==
LOC: HO.HHCL 10:06
PROVIDERS: PCP Registered Nurse; Visit Provider Registered Nurse
DX: E66.812 Obesity, class 2 (principal); Z68.37 Body mass index [BMI] 37.0-37.9, adult; Z11.3 Encounter for screening for infections with a predominantly sexual mode of transmission; Z11.4 Encounter for screening for human immunodeficiency virus [HIV]; Z11.8 Encounter for screening for other infectious and parasitic diseases; Z11.59 Encounter for screening for other viral diseases
CPT/HCPCS: 36415; 80053; 80061; 83036; 84443; 86704; 86706; 86780; 86803; 87340; 87389; 87491; 87591

== ENCOUNTER 2025-06-18 16:25 | Outpatient (REF) | payer MEDICAID, SELFPAY ==
--- OUTSIDE RECORDS SUMMARY | 2025-06-18 11:15 | XMS_ITS | Encounter Summary ---
Author Organization [employer] Address [address] [facility] 7t [place] [address] Care Team Providers Care Automatic Blocker Name Role Phone [facility] Primary Care Provider Reason for Visit * Reason Comments Follow-up Encounter Details Date Type Department Care Team ([facility] Contact Info) Description 06/18/2025 11:15 AM EDT Office Visit [facility] MEDICINE [address] [place], [place] [phone] [facility] [address] [place] [address] Seasonal allergies (Primary Dx); Non-seasonal allergic rhinitis, unspecified trigger; rhinitis; Multiple food allergies; Class 2 obesity due to excess calories with body mass index (BMI) of 37.0 to 37.9 in adult, unspecified whether serious comorbidity present; Encounter for immunization; Routine screening for STI (sexually transmitted infection) Social History Tobacco Use Types Packs/Day Years Used Date Smoking Tobacco: Never Smokeless Tobacco: Never Alcohol Use Standard Drinks/Week Comments Not Currently 0 (1 standard drink = 0.6 oz pur e alcohol) Depression Answer Date Recorded Patient Health Questionnaire-9 Score 0 06/18/2025 Patient Health Questionnaire-9 Score 0 06/18/2025 Last PHQ-9: Questionnaire Data Not on file 1 Housing Stability Answer Date Recorded What is [...] getting things needed for daily living? No 03/18/2025 Utilities Answer Date Recorded In the past 12 months, has t he [employer], gas, oil or water company threatened to shut off services in your home? No 09/06/2024 Depression Answer Date Recorded Patient Health Questionnaire-2 Score 0 06/18/2025 Internet Access Answer Date Recorded Internet Access Q1 Yes 09/06/2024 Internet Access Q2 Not on file 09/06/2024 Comments Unknown Sex and Gender Information Value Date Recorded Sex Assigned at Female 06/20/2022 10:16 AM EDT Legal Sex Female 10:16 AM EDT Gender Identity Female 06/20/2022 10:16 AM EDT Sexual Orientation Straight 06/20/2022 10 :16 AM EDT documented as of this encounter Last Filed Vital Signs Vital Sign Reading Time Taken Comments Blood Pressure 110/78 06/18/2025 11:17 AM EDT Pulse 78 06/18/2025 11:17 AM EDT Temperature 36.7 C (98 F) 06/18/2025 11:17 AM EDT Respiratory Rate 18 06/18/2025 11:17 AM EDT Oxygen Saturation - - Inhaled Oxygen Concentration - - Weight 103 kg (226 lb 3.2 oz) 06/18/2025 11:17 A M EDT Height 162.6 cm (5' 4 ) 06/18/2025 11:17 AM EDT Body Mass Index 38.83 06/18/2025 11:17 AM EDT documented in this encounter Functional Status * Over the past 2 weeks, how often have you been bothered by any of the following problems? Question Answer Date of Assessment Author Patient Health Questionnaire-2 Score 0 06/18/2025 11:24 AM EDT Allison Licona MA * Little interest or pleasure in doing things Answer Date of Assessment Author Not at all 06/18/2025 11:24 AM EDT Allison Chaves MA * Feeling down, depressed, or hopeless Answer Date of Assessment Author Not at all 06/18/2025 11:24 AM EDT Allison Chaves MA * Trouble falling or staying asleep, or sleeping too much Answer Date of Assessment Author Not at all 06/18/2025 11:24 AM EDT Allison Chaves MA * Feeling tired or having little energy Answer Date of Assessment Author Not at all 06/18/2025 11:24 AM EDT Allison Chaves MA * Poor appetite or overeating Answer Date of Assessment Author Not at all 06/18/2025 11:24 AM EDT Allison Chaves MA * Feeling bad about yourself - or that you are a failure or have let yourself or your family down Answer Date of Assessment Author Not at all 06/18/2025 11:24 AM EDT Allison Chaves MA * Trouble concentrating on things, such as reading the newspaper or watching television Answer Date of Assessment Author Not at all 06/18/2025 11:24 AM EDT Allison Chaves MA * Moving or speaking so slowly that other people could have noticed? Or the opposite - being so fidgety or restless that you have been moving around a lot more than usual. Answer Date of Assessment Author Not at all 06/18/2025 11:24 AM EDT Allison Chaves MA * Thoughts that you would be better off or hurting yourself in some way Answer Date of Assessment Author Not at all 06/18/2025 11:24 AM EDT Allison Chaves MA * Patient Health Questionnaire-9 Score Answer Date of Assessment Author 0 06/18/2025 11:24 AM Allison Bailon MA documented as of this encounter Plan of Treatment Upcoming Encounters Date Type Department Care Team (Late st Contact Info) Description 08/05/2025 1:00 PM EST Office Visit [facility] OPTOMETRY [address] [place] [address] Radha Ruiz, OD [address] [place] [address] 09/10/2025 11:15 AM EST Office Visit [facility] MEDICINE [address] [place] [address] [facility] [address] [place] [address] Scheduled Orders Name Type Priority Associated Diagnoses Orde r Schedule Chlamydia/N. Gonorrhoeae RNA, TMA, Vaginal Microbiology Routine Routine screening for STI (sexually transmitted infection) Ordered: 06/18/2025 documented as of this encounter Visit Diagnoses Diagnosis Seasonal allergies- Primary Allergic rhinitis, cause unspecified Non-seasonal allergic rhinitis, unspecified trigger rhinitis Other current maternal conditions classifiable elsewhere, complicating , childbirth, or the puerperium, unspecified as to episode of care Multiple food allergies Class 2 obesity due to excess calories with body mass index (BMI) of 37.0 to 37.9 in adult, unspecified whether serious comorbidity present Encounter for immunization Routine screening for STI (sexually transmitted infection) Screening examination for venereal disease documented in this encounter Additional Health Concerns Assessment Noted Time PHQ-9 Depression Total Score: 0 06/18/20 11:24 AM EDT documented as of this encounter Care Teams Automatic Blocker Relationship Specialty Start Date End Date Saul Nelia [facility] [address] [place] [address] PCP - General Family Medicine 08/26/24 documented as of this encounter
--- OUTSIDE RECORDS SUMMARY | 2025-06-18 20:13 | XMS_ITS | Encounter Summary ---
Author Organization [employer] Address [address] [facility] 7t [place] [address] Care Team Providers Care Continuity Clerk Name Role Phone Taina Espinoza ANP Primary Care Provider [phone] Gloucester Lopez CARPET INSTALLER Primary Care Provider [phone] Reason for Visit * Reason Onset Date Comments Transfer Patient Appt 10/25/2023 Encounter Details Date Type Department Care Team ([facility] st Contact Info) Description 10/25/2023 Telephone [facility] MEDICINE [address] [place], [place] [phone] Tania Espinoza ANP [address] [place], [place] [phone] Transfer Patient Appt Social History Tobacco Use [...] needs a Transfer Patient appt from Alyssa Dora Soler documented in this encounter Plan of Treatment Upcoming Encounters Date Type Department Care Team (Late st Contact Info) Description 08/05/2025 1:00 PM EST Office Visit [facility] OPTOMETRY [address] [place] [address] Radha Ruiz, OD [address] [place] [address] 09/10/2025 11:15 AM EST Office Visit [facility] MEDICINE [address] [place] [address] GloucesterNelia, [facility] [address] [place] [address] documented as of this encounter Visit Diagnoses Not on filedocumented in this encounter Additional Health Concerns Assessment Noted Time PHQ-9 Depression Total Score: 0 03/14/20 23 2:29 PM EDT documented as of this encounter Care Teams Continuity Clerk Relationship Specialty Start Date End Date Tania Espinoza ANP [address] [place] [address] PCP - General Family Medicine 05/25/23 11/01/23 GloucesterNelia FNP [address] [place] [address] PCP - General Family Medicine 08/26/24 documented as of this encounter
--- OUTSIDE RECORDS SUMMARY | 2025-06-18 20:13 | XMS_ITS | Encounter Summary ---
Author Organization [employer] Address [address] [facility] 7t [place] [address] Care Team Providers Care Sexologist Name Role Phone Saul [facility] Primary Care Provider [phone] Encounter Details Date Type Department Care Team (Latest Contact Info) Description 06/18/2025 Travel Social History Tobacco Use Types Packs/Day Years [...] AM EDT documented as of this encounter Functional Status * Over the [...] of Assessment Author 0 06/18/2025 11:24 AM EDT Allison Chaves MA documented as of this encounter Plan of Treatment Upcoming Encounters Date Type Department Care Team (Late st Contact Info) Description 08/05/2025 1:00 PM EST Office Visit [facility] OPTOMETRY [address] [place] [address] Radha Ruiz, OD [address] [place] [address] 09/10/2025 11:15 AM EST Office Visit [facility] MEDICINE [address] [place] [address] Nelia Hughes FNP [address] [place] [address] documented as of this encounter Visit Diagnoses Not on filedocumented in this encounter Additional Health Concerns Assessment Noted Time PHQ-9 Depression Total Score: 0 06/18/20 11:24 AM EDT documented as of this encounter Care Teams Sexologist Relationship Specialty Start Date End Date Nelia Hughes FNP [address] [place] [address] PCP - General Family Medicine 08/26/24 documented as of this encounter
--- OUTSIDE RECORDS SUMMARY | 2025-06-18 20:13 | XMS_ITS | Clinical Summary ---
Author Organization [employer] Address [address] [facility] [address] [place] [address] Care Team Providers Care Nuclear Medicine Specialist Name Role Phone Nelia Hughes [facility] Primary Care Provider [phone] Allergies Active Allergy Reactions Criticality Noted Date Comments Apple Juice 08/10/2020 Other reaction(s): Itching Castro 08/10/2020 Other reaction(s): Itching Corylus 08/10/2020 Other reaction(s): Sore throat symptom Peanut-Containing Drug Products Angioedema High 03/14/2023 Shrimp Extract 08/10/2020 Tomato 08/10/2020 Medications * This document contains information received from the source organization and may not represent a complete record from that organization. Calcium Antacid 500 MG chewable tablet CHEW 1 TABLET BY MOUTH TWICE DAILY 07/25/20 22 Active FeroSul 325 (65 Fe) MG tablet Take 1 tablet by mouth in the morning. 08/26/19 23 Active 27-1 MG tablet Take 1 tablet by mouth in the morning. 09/26/19 23 Active omeprazole (PriLOSEC) [address] capsuleIndicat ions:Gastroeso phageal reflux disease without esophagitis TAKE 1 CAPSULE BY MOUTH EVERY DAY BEFORE A MEAL 90 capsule 12/02/19 23 Active Eye Itch Relief 0.025 % ophthalmic solutionIndica tions:Non-seas onal allergic rhinitis, unspecified trigger,Pregna ncy rhinitis INSTILL 1 DROP INTO THE AFFECTED EYE(S) EVERY TWELVE HOURS 10 mL 2 03/25/20 23 Active topiramate (Topamax) 25 MG tabletIndicati ons:Class 2 obesity due to excess calories with body mass index (BMI) of 37.0 to 37.9 in adult, unspecified whether serious comorbidity present Take 2 tablets (50 mg) by mouth before evening meal. 60 tablet 1 03/18/20 25 026 Active phentermine 37.5 MG capsuleIndicat ions:Class 2 obesity due to excess calories with body mass index (BMI) of 37.0 to 37.9 in adult, unspecified whether serious comorbidity present Take 1 capsule (37.5 mg) by mouth before breakfast. 30 capsule 06/18/20 25 025 Active fexofenadine (Yasmany) 180 MG tabletIndicati ons:Non-season al allergic rhinitis, unspecified trigger Take 1 tablet (180 mg) by mouth Once per day. 30 tablet 11 06/18/20 25 026 Active fluticasone (Flonase) 50 MCG/ACT nasal sprayIndicatio ns:Non-seasona l allergic rhinitis, unspecified trigger,Pregna ncy rhinitis Administer 2 sprays into each nostril Once per day. Shake gently. Before first use, prime pump. After use, clean tip and replace cap. 48 g 1 06/18/20 25 Active EPINEPHrine (Epipen) 0.3 MG/0.3ML injection syringeIndicat ions:Multiple food allergies Inject 0.3 mL (0.3 mg) as directed 1 (one) time for 1 dose. 0.3 mL 06/18/20 25 Active fluticasone (Flonase) 50 MCG/ACT nasal sprayIndicatio ns:Non-seasona l allergic rhinitis, unspecified trigger,Pregna ncy rhinitis INSTILL 2 SPRAYS IN EACH NOSTRIL ONCE DAILY IN THE MORNING. 48 g 1 01/20/20 23 025 Discontinued(Re order (will not trigger notification to Pharmacy)) EPINEPHrine (Epipen) 0.3 MG/0.3ML injection syringeIndicat ions:Multiple food allergies Inject 0.3 mL (0.3 mg) as directed 1 (one) time for 1 dose. 0.3 mL 08/26/19 025 Discontinued(Re order (will not trigger notification to Pharmacy)) fexofenadine (Yasmany) 180 MG tabletIndicati ons:Non-season al allergic rhinitis, unspecified trigger Take 1 tablet (180 mg) by mouth Once per day. 30 tablet 11 11/09/19 025 Discontinued(Re order (will not trigger notification to Pharmacy)) phentermine 15 MG capsuleIndicat ions:Class 2 obesity due to excess calories with body mass index (BMI) of 37.0 to 37.9 in adult, unspecified whether serious comorbidity present Take 1 capsule (15 mg) by mouth before breakfast. 30 capsule 03/18/20 025 Discontinued Active Problems Problem Noted Date Diagnosed Date Mild anxiety 03/18/2025 Assessment & Plan (03/18/2025 2:08 PM EDT): During IBH Consult Marcia presenting with depressed mood, Tearful, crying spells , hopelessness, change in appetite or weight unintentional weight gain, changes in sleep difficulty falling asleep and difficulty staying asleep , psychomotor retardation, fatigue/loss of energy, inappropriate/excessive guilt , difficulty concentrating and excessive worry/anxiety, difficulty controlling worry, and anxiety/worry associated to restlessness and/or feeling keyed-up/On edge and easily fatigued ; for a period of 0-6 mo, for most or all symptoms in the context of family issues. Pt with significant stressors including caring for her mom who is severely ill and her children. Pt reports the sxs described above are stopping her from enjoying life at its fullest. However, intensity and frequency of symptoms does not meet criteria for a specific type of anxiety. Pt was provided with coping strategies to decrease stress. She will consider medication as part of treatment in the future. Currently willing to start CBT therapy as part of self-care. Major depressive disorder, recurrent episode, mi ld 03/18/2025 Assessment & Plan (03/18/2025 2:08 PM EDT): During IBH Consult Marcia presenting with depressed mood, Tearful, crying spells , hopelessness, change in appetite or weight unintentional weight gain, changes in sleep difficulty falling asleep and difficulty staying asleep , psychomotor retardation, fatigue/loss of energy, inappropriate/excessive guilt , difficulty concentrating and excessive worry/anxiety, difficulty controlling worry, and anxiety/worry associated to restlessness and/or feeling keyed-up/On edge and easily fatigued ; for a period of 0-6 mo, for most or all symptoms in the context of family issues. Pt with significant stressors including caring for her mom who is severely ill and her children. Pt reports the sxs described above are stopping her from enjoying life at its fullest. However, intensity and frequency of symptoms does not meet criteria for a specific type of anxiety. Pt was provided with coping strategies to decrease stress. She will consider medication as part of treatment in the future. Currently willing to start CBT therapy as part of self-care. 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 Date Type Department Care Team Description 06/18/2025 11:15 AM EDT Office Visit [address] [address] [place], Nelia, CDL INSTRUCTOR Seasonal allergies (Primary Dx); Non-seasonal allergic rhinitis, unspecified trigger; rhinitis; Multiple food allergies; Class 2 obesity due to excess calories with body mass index (BMI) of 37.0 to 37.9 in adult, unspecified whether serious comorbidity present; Encounter for immunization; Routine screening for STI (sexually transmitted infection) 06/18/2025 Travel 06/11/2025 Patient Outreach [address] [address] [place]worthNelia palomino [facility] Pre-visit Planning (SDOH screening was completed on 03/18/2025) 06/09/[address] [address] [place] [facility] Care Management ([facility] TC #4-case closed) 05/05/[address] [address] [place] [facility] Care Management ([facility] TC #3-lvm) 04/08/[address] [address] [place] [facility] oct recall 04/04/[address] [address] [place], Nelia [facility] Care Management ([facility] TC #2-lvm) 03/19/2025 Results Follow-Up [facility] [address] [place] [phone] [place]elia [facility] Chlamydia/Trichomona s/Neisseria gonorrhoeae, PCR, Urine 03/19/2025 Orders Only [address] [address] [place]elia [facility] 03/18/2025 10:00 AM [place] [address] SaulNelia palomino [facility] Healthcare maintenance (Primary Dx); Class 2 obesity due to excess calories with body mass index (BMI) of 37.0 to 37.9 in adult, unspecified whether serious comorbidity present; Routine screening for STI (sexually transmitted infection); Dietary counseling; Exercise counseling 03/18/2025 Travel from Last 3 Months Immunizations Immunization Administration Dates Next Due Influenza, seasonal, injectable, preservative fr ee 06/18/2025 Social History Tobacco Use Types Packs/Day Years Used Date Smoking Tobacco: Never Smokeless Tobacco: Never Tobacco Cessation:Counseling Given: Not Answered Alcohol Use Standard Drinks/Week Comments Not Currently [...] Q2 Not on file 09/06/2024 Comments Unknown Intention Date Recorded No desire to become (finding) 0 03/18/2025 Sex and Gender Information Value Date Recorded [...] 18 06/18/2025 11:17 AM EDT Oxygen Saturation 99% 03/14/2023 2:26 PM EDT Inhaled Oxygen Concentration - - Weight 103 kg (226 lb 3.2 oz) 06/18/2025 11:17 A M EDT Height 162.6 cm (5' 4 ) 06/18/2025 11:17 AM EDT Body Mass Index 38.83 06/18/2025 11:17 AM EDT Plan of Treatment Upcoming Encounters Date Type Department Care Team (Late st Contact Info) Description 08/05/2025 1:00 PM EST Office Visit [facility] OPTOMETRY [address] [place] [address] Joseph, Radha, OD [address] [place] [address] 09/10/2025 11:15 AM EST Office Visit [facility] MEDICINE [address] [place] [address] Ken[place]worth, Nelia, CDL INSTRUCTOR [address] [place] [address] Health Maintenance Due Date Last Done Comments Alcohol/Substance Use Screening 2001 HPV Vaccines (1 - 3-dose series) 2004 COVID-19 Vaccine ( season) 2025 04/28/2021, 04/07/2021 Disability Screening 03/18/2026 03/18/2025 SDOH Screening 03/18/2026 03/18/2025 Family Planning (PISQ) 03/24/2026 03/24/2025 Tobacco Screening 03/24/2026 03/24/2025 Depression Screening 06/18/2026 06/18/2025, 06/18/20 Cervical Cancer Screening 04/12/2027 HPV/Cotest 04/12/2027 06/24/2022 Pap Smear 04/12/2027 04/12/2024, 06/24/2022 Lipid Panel 03/19/2030 03/19/2025, 04/13/2020 DTaP/Tdap/Td Vaccines (10 - Td or Tdap) 06/18/2034 06/18/2024, 10/11/2022, 05/06/2015, Additional history exists Zoster Vaccines (1 of 2) 2039 HIB Vaccines Completed 11/01/1990 Hepatitis B Vaccines Completed 06/16/1993, 10/09/1992, 09/08/1992 IPV Vaccines Completed 12/13/1993, 01/19, 1989, Additional history exists RSV Patients and Patients Aged 60 years or older Completed 08/02/2024 HIV Screening Completed 03/19/2025, 04/13/2020 Hepatitis C Screening Completed 03/19/2025, 020 Influenza Vaccine Completed 06/18/2025, , 05/16/2024, Additional history exists Hepatitis A Vaccines Aged Out No long er eligible based on patient's age to complete this topic Meningococcal B Vaccine Aged Out No l onger eligible based on patient's age to complete this topic Meningococcal Vaccine Aged Out No brynn sav eligible based on patient's age to complete this topic Pneumococcal Vaccine: Pediatrics (0 to 5 Years) and At-Risk Patients (6 to 49) Years Aged Out No longer eligible based on patient's age to complete this topic RSV under 20 months Aged Out No longe r eligible based on patient's age to complete this topic Rotavirus Vaccines Aged Out No longer eligible based on patient's age to complete this topic Procedures Procedure Name Priority Date/Time Associated Diagnosis Comments SYPHILIS SCREEN Routine 03/19/2025 11:02 AM EDT Routine screening for STI (sexually transmitted infection) CHLAMYDIA/TRICHOMONAS/ NEISSERIA GONORRHOEAE, PCR, URINE Routine 03/19/2025 10:29 AM EDT HEMOGLOBIN A1C Routine 03/19/2025 10:29 AM EDT Class 2 obesity due to excess calories with body mass index (BMI) of 37.0 to 37.9 in adult, unspecified whether serious comorbidity present TSH W/REFLEX TO FT4 Routine 03/19/2025 1 0:29 AM EDT Class 2 obesity due to excess calories with body mass index (BMI) of 37.0 to 37.9 in adult, unspecified whether serious comorbidity present HEPATITIS B SURFACE ANTIBODY, QUALITATIVE Routine 03/19/2025 10:29 AM EDT Routine screening for STI (sexually transmitted infection) HEPATITIS B CORE AB TOTAL Routine 03/19/2025 10:29 AM EDT Routine screening for STI (sexually transmitted infection) HEPATITIS B SURFACE ANTIGEN, EIA Routine 03/19/2025 10:29 AM EDT Routine screening for STI (sexually transmitted infection) HEPATITIS C AB W/REFL TO HCV RNA, QN, PCR Routine 03/19/2025 10:29 AM EDT Routine screening for STI (sexually transmitted infection) HIV 1/2 ANTIGEN/ANTIBODY, FOURTH GENERATION W/RFL Routine 03/19/2025 10:29 AM EDT Routine screening for STI (sexually transmitted infection) LIPID PANEL, STANDARD Routine 03/19/2025 10:29 AM EDT Class 2 obesity due to excess calories with body mass index (BMI) of 37.0 to 37.9 in adult, unspecified whether serious comorbidity present COMPREHENSIVE METABOLIC PANEL Routine 03/19/2025 10:29 AM EDT Class 2 obesity due to excess calories with body mass index (BMI) of 37.0 to 37.9 in adult, unspecified whether serious comorbidity present HM PAP/HPV Routine 04/12/2024 12:00 AM EDT HM PAP/HPV Routine 06/24/2022 from Last 3 Months or Most Recently Relevant to Health Maintenance Results * Syphilis Screen (03/19/2025 11:02 AM EDT) Syphilis Screen Nonreactive Nonreactive [facility] Blood 03/19/2025 11:0 2 AM EDT 03/19/2025 11:23 AM EDT [facility] LAB BLOOD ORDERABLES Final Re sult Performing Organization Address [facility]/ZIP Co de Phone Number [facility] [address] [place] [address] [phone] * (ABNORMAL) Chlamydia/Trichomonas/Neisseria gonorrhoeae, PCR, Urine (03/19/2025 10:29 AM EDT) CT PCR, Urine DETECTED(A) Not Detect. [facility] Comment:Detected results may be observed after successful antibiotictreatment due to target nucleic acids from residualnon-viable chlamydia. As with many diagnostic tests, resultsfrom the Xpert CT/NG assay should be interpreted inconjunction with other laboratory and clinical dataavailable to the clinician.The Xpert CT/NG assay should not be used for the evaluationof suspected sexual abuse or for other medico-legalindications. Additional testing is recommended inany circumstance when false positive or false negativeresults could lead to adverse medical, social orpsychological consequences.These results must be reported by the ordering clinician orclinical facility to the [facility]as required by state law. NG PCR, Urine NOT DETECTED Not Detect. [facility] Comment:A not detected test result does not exclude the possibilityof infection because test results can be affected byimproper specimen collection, concurrent antibiotic therapy,or the number of organisms in the specimen which may bebelow the sensitivity of the test. As with many diagnostictests, results from the Xpert CT/NG assay should beinterpreted in conjunction with other laboratory andclinical data available to the clinician.The Xpert CT/NG assay should not be used for the evaluationof suspected sexual abuse or for other medico-legalindications. Additional testing is recommended in anycircumstance when false positive or false negative resultscould lead to adverse medical, social or psychologicalconsequences. 03/19/2025 10:2 9 AM EDT 03/19/2025 11:06 AM EDT [facility] LAB URINE ORDERABLES Final Re sult Performing Organization Address [facility]/ZIP Co de Phone Number [facility] [address] [place] [address] [phone] * TSH W/Reflex to FT4 (03/19/2025 10:29 AM EDT) TSH reflex Free T4 1.07 0.32 - 4.0 uIU/mL [facility] Blood Venous blood specimen / Unknown 03/19/2025 10:29 AM EDT 03/19/2025 11:23 AM EDT [facility] LAB BLOOD ORDERABLES Final Re sult Performing Organization Address [facility] Co de Phone Number [facility] [address] [place] [phone] * Hepatitis C Antibody with Reflex to HCV, RNA, Quantitative, Real-Time PCR (03/19/2025 10:29 AM EDT) Hepatitis C Antibody Nonreactive Nonreactive [facility] Comment:Antibodies to HCV no t detected; does not exclude early acuteHCV infection. Blood Venous blood specimen / Unknown 03/19/2025 10:29 AM EDT 03/19/2025 11:23 AM EDT [facility] LAB BLOOD ORDERABLES Final Re sult Performing Organization Address [facility] Co de Phone Number [facility] [address] [place] [phone] * Hepatitis B surface antigen, EIA (03/19/2025 10:29 AM EDT) Pathologist [facility] Hepatitis B Surface Ag Negative Negative [facility] Blood Venous blood specimen / Unknown 03/19/2025 10:29 AM EDT 03/19/2025 11:23 AM EDT [facility] LAB BLOOD ORDERABLES Final Re sult Performing Organization Address [facility]/ZIP Co de Phone Number [facility] [address] [place] [phone] * Hepatitis B Core Antibody, Total (03/19/2025 10:29 AM EDT) Hepatitis B Core Antibody Nonreactive Nonreactive [facility] Blood Venous blood specimen / Unknown 03/19/2025 10:29 AM EDT 03/19/2025 11:23 AM EDT [facility] LAB BLOOD ORDERABLES Final Re sult [facility] [address] [place] [phone] [phone] * HIV-1/2 Antigen and Antibodies, Fourth Generation, with Reflexes (03/19/2025 10:29 AM EDT) HIV AB/AG Nonreactive Nonreactive [facility] Comment:HIV-1 p24 Ag and/or HIV-1/HIV-2 Ab not detected.A test result that is nonreactive does not exclude thepossibility of exposure to or infection with HIV-1 and/orHIV-2. Nonreactive results in this assay for individualswith prior exposure to HIV-1 and/or HIV-2 may be due toantigen and antibody levels that are below the limit ofdetection of this assay.The [email or web address] HIV Ag/Ab Combo assay result andsupplemental assay results should be interpreted inconjunction with the patient's clinical presentation,history and other laboratory results. If the results areinconsistent with clinical evidence, additional testing issuggested to confirm the result. Blood Venous blood specimen / Unknown 03/19/2025 10:29 AM EDT 03/19/2025 11:23 AM EDT [facility] LAB BLOOD ORDERABLES Final Re sult [facility] [address] [place] [address] [phone] * Hepatitis B Surface Antibody, Qualitative (03/19/2025 10:29 AM EDT) Pathologist [facility] ~Hepatitis B Surface Antibody REACTIVE Nonreactive [facility] Comment:REACTIVE: > 11.99 mI U/mL Blood Venous blood specimen / Unknown 03/19/2025 10:29 AM EDT 03/19/2025 11:23 AM EDT [facility] LAB BLOOD ORDERABLES Final Re sult Performing Organization Address City/[facility] Co de Phone Number [facility] [address] [place] [address] [phone] * Hemoglobin A1c (03/19/2025 10:29 AM EDT) [facility] Hemoglobin A1c 5.2 <6.0 % [facility] Comment:Hemoglobin A1C Refer ence Range Adults: 4.8 - 6.0 % Non diabetic: < 6.0 % Goal: < 7.0 %Additional Action Suggested: > 8.0 %Note: Hemoglobin A1c results are invalid for patients with abnormal amounts of HbF. Blood transfusions may impact the HbA1c concentration in the patient sample. Estimated Average Glucose 103 mg/dL [facility] Comment:eAG = Estimated ave rage glucose which is %A1C expressed asaverage glucose, using the formula of the C9M-[id number] Glucose study (ADAG), Diabetes Care, Vol.31,#8,Mar. 2007 Blood Venous blood specimen / Unknown 03/19/2025 10:29 AM EDT 03/19/2025 11:23 AM EDT [facility] LAB BLOOD ORDERABLES Final Re sult Performing Organization Address [facility]/ZIP Co de Phone Number [facility] [address] [place] [phone] [phone] * (ABNORMAL) Lipid Panel, Standard (03/19/2025 10:29 AM EDT) [facility] Triglycerides 44 <150 mg/dL [facility] Comment:Desirable Triglyceri de: less than 150 mg/dLBorderline High Triglyceride 150-199 mg/dLHigh Triglyceride: 200-499 mg/dLVery High Triglyceride: greater than or equal to 5OO mg/dL Cholesterol 107 <200 mg/dL [facility] Comment:Desirable Cholestero l: less than 200 mg/dLBorderline High Cholesterol: 200-239 mg/dLHigh Cholesterol: greater than 239 mg/dL LDL Cholesterol Calculated 66 <100 mg/dL [facility] Comment:Desirable LDL: less than 100 mg/dLNear Optimal/Above Optimal LDL: 110- 129 mg/dLBorderline High LDL: 130-159 mg/dLHigh LDL: 160-189 mg/dLVery High LDL: greater than or equal to 190 mg/dL HDL Cholesterol 33(L) >40 mg/dL [facility] Comment:Desirable HDL: great er than 40 mg/dL Note: This HDL assay may give artificially low results in patients with liver disease. Blood Venous blood specimen / Unknown 03/19/2025 10:29 AM EDT 03/19/2025 11:23 AM EDT [facility] [employer] INSTRU[employer] LAB BLOOD ORDERABLES Final Re sult [facility] [address] [place], [place] [phone] * (ABNORMAL) Comprehensive Metabolic Panel (03/19/2025 10:29 AM EDT) Sodium 140 135 - 145 mmol/L [facility] Potassium 3.9 3.3 - 5.1 mmol/L [facility] Chloride 108 96 - 108 mmol/L [facility] Carbon Dioxide 26 22 - 29 mmol/L [facility] Anion Gap 10(L) 12 - 20 [facility] Urea Nitrogen (BUN) 9 9 - 16 mg/dL [facility] Creatinine, Serum 0.77 0.5 - 1.4 mg/dL [facility] Estimated Glomerular Filt Rate >60 [facility] Comment:Chronic Kidney Disea se: Estimated GFR < 60 mL/min/1.82y2Ebyajg Kidney Disease: Estimated GFR < 15 mL/min/1.73m2 Glucose 90 60 - 115 mg/dL [facility] Calcium 8.6 8.4 - 10.2 mg/dL [facility] Bilirubin, Total 0.3 0.0 - 1.0 mg/dL [facility] Aspartate Amino Transferase 39(H) 5 - 31 U/L [facility] Alanine Aminotransferase 26 0 - 31 U/L [facility] Total Protein 7.2 6.5 - 8.0 g/dL [facility] Albumin Level 3.9 3.5 - 5.0 g/dL [facility] Alkaline Phosphatase 91 39 - 117 U/L [facility] Blood Venous blood specimen / Unknown 03/19/2025 10:29 AM EDT 03/19/2025 11:23 AM EDT [facility] [employer] LAB BLOOD ORDERABLES Final Re sult Performing Organization Address City/State/[facility] Co de Phone Number [facility] [address] [place] [phone] * HM PAP/HPV (04/12/2024 12:00 AM EDT) Only the most recent of2 resultswithin the time period is included. Historical Provider MD HEALTH MAINTENANCE Final Result from Last 3 Months or Most Recently Relevant to Health Maintenance Insurance [facility] C3 Care Teams Nuclear Medicine Specialist Relationship Specialty Start Date End Date [place]elia FNP [address] [place] [phone] PCP - General Family Medicine 08/26/24
--- OUTSIDE RECORDS SUMMARY | 2025-06-18 20:13 | XMS_ITS | Encounter Summary ---
Author Organization [employer] Address 75 [facility] 7t [place] [address] Care Team Providers Care Pcb Design Engineer Name Role Phone Saul Nelia CATHEAD OPERATOR Primary Care Provider Encounter Details Date Type Department Care Team (Late st Contact Info) Description 04/24/2024 Orders Only [place] [facility] [address] [place] [address] Provider, MD Wesley Social History Tobacco Use Types Packs/Day Years [...] Description 08/05/2025 1:00 PM EST Office Visit [facility] OPTOMETRY [address] [place] [address] Joseph, Radha, OD [address] [place] [address] 09/10/2025 11:15 AM EST Office Visit [facility] MEDICINE [address] [place] [address] Nelia Hughes FNP [address] [place] [address] documented as of this encounter Visit Diagnoses Not on filedocumented in this encounter Additional Health Concerns Assessment Noted Time PHQ-9 Depression Total Score: 0 03/14/20 23 2:29 PM EDT documented as of this encounter Care Teams Pcb Design Engineer Relationship Specialty Start Date End Date Nelia Hughes FNP [address] [place] [address] PCP - General Family Medicine 08/26/24 documented as of this encounter
--- OUTSIDE RECORDS SUMMARY | 2025-06-18 20:13 | XMS_ITS | Clinical Summary ---
Author Organization [facility] ity Address [address] [place] [address] Care Team Providers Care Charcoal Kiln Burner Name Role Phone Unavailable Primary Care Provider [...] Cervical Cancer Screening: P ap Smear 2010 HPV Vaccines (1 - 3-dose SCD M series) 2016 HIV Screening 09/19/2023 Hepatitis C Screening 09/19/2023 Social Influencers of Health Screening 09/19/2023 Depression Screening 08/21/2024 COVID-19 Vaccine (1 - 2023-2 5 season) 2025 Influenza Vaccine (#1) 2025 RSV Immunization Adult Patie nts (1 - 1-dose 75+ series) 2064 HIB Vaccines Aged Out No longer eligi [...]
--- OUTSIDE RECORDS SUMMARY | 2025-06-18 20:13 | XMS_ITS | Encounter Summary ---
Author Organization [employer] Address 75 [facility] 7t [place] [address] Care Team Providers Care Concrete Tester Name Role Phone Saul Nelia GORE INSERTER Primary Care Provider [phone] Encounter Details Date Type Department Care Team (Late st Contact Info) Description 05/02/2024 Orders Only [place] [facility] Information [facility] [address] [place] [address] Provider, MD Wesley Social History Tobacco Use [...] Description 08/05/2025 1:00 PM EST Office Visit [facility] OPTOMETRY [address] [place] [address] Joseph, Radha, OD [address] [place] [address] 09/10/2025 11:15 AM EST Office Visit [facility] MEDICINE [address] [place] [address] Nelia Hughes FNP [address] [place] [address] documented as of this encounter Visit Diagnoses Not on filedocumented in this encounter Additional Health Concerns Assessment Noted Time PHQ-9 Depression Total Score: 0 03/14/20 23 2:29 PM EDT documented as of this encounter Care Teams Concrete Tester Relationship Specialty Start Date End Date Nelia Hughes FNP [address] [place] [address] PCP - General Family Medicine 08/26/24 documented as of this encounter
--- OUTSIDE RECORDS SUMMARY | 2025-06-18 20:13 | XMS_ITS | Clinical Summary ---
Author Organization [facility] Address [address] [address] Phone Care Team Providers Care Winding Department Supervisor Name Role Phone [facility], [facility] MD Primary Care Provider Allergies Active Allergy Reactions Criticality Noted Date Comments Apple 04/12/2024 Cat Dander 04/12/2024 Castro 08/10/2020 Other reaction(s): Itching Hazelnut 08/10/2020 Other reaction(s): Sore throat symptom Peanut Angioedema High 03/14/2023 Shellfish Containing Products 08/10/2020 [place] 04/12/2024 Tomato 08/10/2020 Tree And Shrub Pollen 04/12/2024 Medications cetirizine (ZYRTEC) 10 MG tablet Take 1 tablet (10 mg total) by mouth daily. 90 tablet 4 Active famotidine (PEPCID) 20 MG tablet Take 1 tablet (20 mg total) by mouth 2 (two) times a day. 60 tablet 3 4 Active aspirin 81 MG EC tablet Take 2 tablets (162 mg total) by mouth daily. 60 tablet 3 4 Active vitamins with ferrous fumarate- folic acid 28 mg iron- 800 mcg TabIndications:En counter for supervision of multigravida of advanced maternal age in second trimester Take 1 tablet by mouth daily. 90 tablet 2 4 Active ferrous sulfate 325 mg (65 mg guidiville iron) tablet Take 1 tablet (325 mg total) by mouth daily with breakfast. 90 tablet 2 4 Active Active Problems Problem Noted Date Diagnosed Date Request for sterilization 05/16/2024 Overview (05/16/2024): Would like [facility] consents signed 05/16/24 Assessment & Plan (05/16/2024 11:27 AM EDT): Counseled today on procedure and that it offers permanent control. She feels 100% sure she does not want another . Consents signed. 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 Anemia during in second trimester 03/22 Overview (04/18/2024): Anemia defined as: Hgb < 11 1st & 3rd trimester Hgb < 10.5 2nd trimester consider checking serum ferritin to confirm iron deficiency Other testing as indicated (hgb electrophoresis or iron studies) Iron deficiency anemia- begin Fe supplement: 60 mg elemental Fe daily (BID or TID if severe anemia), consider stool softener and vitamin C CBC, ferritin, in 2-6 wks consider IV iron infusion (FEREHEME 510mg on CBC or cancer center) if severe, not able to take oral iron, or not improving Heme consult if anemia severe (< 8) or etiology is unclear 04/16/25 hgb 8.5 MCV 76.4 (normal MCV noted in the past.)--- pt called to discuss lab results. Will start iron supplement, and iron rich foods. Assessment & Plan (05/16/2024 11:25 AM EDT): Hgb was 8.5 in second trimester. She has not started an iron supplement today. Reviewed rationale for supplementation and Rx sent for iron. Ferritin added to 28-wk labs. Rh negative state in antepartum period Overview (04/18/2024): ABS and Rhogam at 28 wks and prn Encounter for supervision of other normal , second trimester 03/22/2024 Overview (05/16/2024): CNM OB-CMI score: 0 [04/12/2024] Group PN care? * screening Carrier screening and cfDNA Baby ASA Yes Rh neg GC/Chlam neg PAP 04/12/24 Flu 05/16/24 COVID-19 * Hgb * GTT * Repeat RPR * Tdap * EPDS * PPBC * GBS * Infant Feeding Plan formula Assessment & Plan (05/16/2024 11:25 AM EDT): Ranulfo has been feeling fairly well in the second trimester. Her only concern is rhinitis of and seasonal allergies. Was taking yasmany prior to but she was advised to switch to zyrtec, which does not seem to improve her symptoms. We reviewed data on second-generation anti-histamines via UpToDate and I reassured her that while Yasmany has less data available, she may use this if this is more effective for her. Counseled on and reviewed infant feeding plan, she is not interested in . Discussed GTT/CBC/RPR/abs at n.v., as well as Rhogam with n.v. Flu shot discussed and administered today. Assessment & Plan (04/12/2024 5:49 PM EDT): Ranulfo is doing well. Here with her adorable daughter. Normal physical exam today. Has a history of abnormal pap. Doesn't know when last abnormal was but last pap was over a year ago. She would like to repeat it today. Collected. Will do all labs today including carrier screen and cfDNA. Is having a lot of heartburn. Rx for pepcid sent. Usually takes Yasmany for allergies but knows that she should switch to zyrtec. Rx for zyrtec sent. Wondering if she should be on baby aspirin. Reviewed that it is recommended for her. Rx sent. No other concerns. Hx of shoulder dystocia in p rior , currently 03/22/2024 Overview (03/22/2024): Please sign SIDNEY at FOB Pt reports shoulder dystocia with 4th child. He was 8.12 lbs Subsequent of 5th child no shoulder dystocia, she was 8.14 lbs. Anxiety 03/22/2024 Overview (03/22/2024): Pt states directly related to unintended . She does want to keep /baby. May be interested in therapy. AMA (advanced maternal age) multigravida 35+ 09/2023 Overview (03/22/2024): AMA age >35 o Recommend daily baby aspirin (162 mg daily) if other risk factors are present (nulliparity, BMI >= 30, family h/o pre-eclampsia in mother or sister, previous with SGA , previous stillbirth, interval of >= 10 years between pregnancies, IVF ) o Risks of aneuploidy discussed w patient. o Offered - Offer cell free DNA - Level 2 - Offer [facility] and amnio o Pt. chooses level 2 and cfDNA Assessment & Plan (04/12/2024 5:46 PM EDT): Message sent to schedule level 2 ultrasound. Doing cfDNA today Immunizations Immunization Administration Dates Next Due DTaP 12/13/1993, 1,02/05/1990,1989,1989 Hepatitis B 06/16/1993,10/09/1992,09/08/1992 Hib,HbOC 11/01/1990 INFLUENZA, SPLIT VIRUS, TRIVALENT PF 05/16/2024 INFLUENZA, SPLIT VIRUS, TRIV ALENT W/ PRESERVATIVE IM 06/23/2022 IPV 12/13/1993, 1,1989,1989 Influenza Quadrivalent Prese rvative Free IM 06/01/2017,05/06/2015 Influenza, Unspecified Formulation 08/27/2013 MMR 09/30/2015,06/09/2015 Td (adult),2 Lf Tetanus Toxo id, PF, Adsorbed 04/19/2001 Tdap 10/11/2022,05/06/2015,01/02/2014 Varicella 1989 Family History Medical History Relation Comments Diabetes Maternal Grandmother Lung cancer Mother Relation Status Comments Maternal Grandmother Mother Alive Social History Tobacco Use Types Packs/Day Years [...] a working camera? Not on file Comments No Sex and Gender Information Value Date Recorded Sex Assigned at Female 08/12/2020 1:52 AM EST Legal Sex Female 1:30 AM EST Gender Identity Female 08/12/2020 1:52 AM EST Sexual Orientation Straight 08/12/2020 1: 52 AM EST Last Filed Vital Signs Vital Sign Reading Time Taken Comments Blood Pressure 118/60 05/16/2024 10:21 AM EDT Pulse 85 08/12/2020 6:24 AM EST Temperature 37 C (98.6 F) 08/12/2020 1:46 AM EST Respiratory Rate 17 08/12/2020 6:24 AM EST Oxygen Saturation 100% 08/12/2020 6:24 AM EST Inhaled Oxygen Concentration - - Weight 98.5 kg (217 lb 3.2 oz) 05/16/2024 10:21 AM EDT Height 165.1 cm (5' 5 ) 08/12/2020 1:46 AM EST Body Mass Index 36.14 08/12/2020 1:46 AM EST Plan of Treatment Health Maintenance Due Date Last Done Comments DEPRESSION SCREENING 2001 SCREENING FOR DIABETES 2024 INFLUENZA VACCINE (#1) 2025 , 06/23/2022, 06/01/2017, Additional history exists COVID-19 VACCINE ( season) 2025 04/28/2021, 04/07/2021 PAP SMEAR 04/12/2027 04/12/2024 Adult Td,Tdap Booster 10/11/2032 10/11/2022 , 05/06/2015, 01/02/2014, Additional history exists HIB VACCINES Completed 11/01/1990 SMOKING STATUS SCREENING (Once After 26 Yrs) Completed 04/12/2024 HEPATITIS C SCREENING Completed 04/16/2024 HIV ONE-TIME SCREENING (18-65 YEARS) Completed 04/16/2024 HEPATITIS A VACCINES Aged Out No long er eligible based on patient's age to complete this topic MENINGOCOCCAL VACCINES (ACWY) Aged Out No longer eligible based on patient's age to complete this topic MENINGOCOCCAL VACCINES (B) Aged Out N o longer eligible based on patient's age to complete this topic PNEUMOCOCCAL VACCINES (0-49 years) Aged Out No longer eligible based on patient's age to complete this topic Medical Devices Not on file Procedures Procedure Name Priority Date/Time Associated Diagnosis Comments HEPATITIS C ANTIBODY, QUALITATIVE Routine 04/16/2024 4:25 PM EDT Need for hepatitis C screening test PAP TEST Routine 04/12/2024 12:00 AM EDT from Last 3 Months or Most Recently Relevant to Health Maintenance Results * Hepatitis C antibody, qualitative (04/16/2024 4:25 PM EDT) HCV NON-REACTIV E NON-REACTI VE [facility] Blood 04/16/2024 4:25 PM EDT 04/16/2024 4:29 PM EDT Hui Ferrer [facility] LAB BLOOD ORDERABLES Final Result [address] [address] * Pap Test (04/12/2024 12:00 AM EDT) Report [address] [address] Supervisor Sewer System: Mercy Low MD STRAINER MILL OPERATOR Cytology Report FINAL DIAGNOSIS A. PAP SMEAR (THIN PREP) CE: SPECIMEN ADEQUACY: Satisfactory for evaluation; transformation zone present. INTERPRETATION: NEGATIVE FOR INTRAEPITHELIAL LESION OR MALIGNANCY. Coccobacilli consistent with shift in john This specimen was analyzed by the automated ThinPrep Imaging System (Petsy.) and the selected hauser were reviewed by a county historian. Electronically Signed Out By: DEVONTE Maldonado(ASCP) The Pap test is a screening test primarily for squamous cancers and precursors and has associated false-negative and false-positive results. New technologies such as liquid-based preparations may decrease but will not eliminate all false-negative results. Regular sampling and follow-up of unexplained clinical signs and symptoms are recommended to minimize false negative results. PROCEDURES/ADDENDA HPV Testing (Requested) Ordered Date: 04/15/2024 A. PAP SMEAR (THIN PREP) CE: Human Papilloma Virus Test NEGATIVE for high-risk Human Papilloma Virus types 16, 18, 45 and the Other high risk probe set (Includes 31, 33, 35, 39, 51, 52, 56, 58, 59, 66, 68) Note: Testing performed by Lydia HR-HPV analysis. Clinical correlation is advised. This HPV test was performed at [facility], [address] [place] [address]. This test has been FDA approved for both SurePath and ThinPrep cervical cytology specimens. The accuracy and precision of this test for all other specimen sources has been verified in the Cytopathology Laboratory of the [facility] and has not been cleared or approved by the U.S. Food and Drug Administration. Clinical correlation is advised. CLINICAL HISTORY Date of Last Menstrual Period: Not Provided Menstrual History: Other Clinical Conditions: Screening Pap SPECIMEN SOURCE A: PAP SMEAR (THIN PREP) CE Patient Name: RANULFO SHIRLEY : 1990 (Age: 33) Sex: F Institution: [facility] Location: [facility] Date of Collection: 04/12/2024 Date of Reported: 04/19/2024 12:07 Results to: Rosa Muro [facility] Final Diagnosis A. PAP SMEAR (THIN PREP) CE: SPECIMEN ADEQUACY: Satisfactory for evaluation; transformation zone present. INTERPRETATION: NEGATIVE FOR INTRAEPITHELIAL LESION OR MALIGNANCY. Coccobacilli consistent with shift in john This specimen was analyzed by the automated ThinPrep Imaging System ([employer] David.) and the selected hauser were reviewed by a county historian. [facility] Results\Inter pretation A. PAP SMEAR (THIN PREP) CE: Human Papilloma Virus TestNEGATIVE for high-risk Human Papilloma Virus types 16, 18, 45 and the Other high risk probe set (Includes 31, 33, 35, 39, 51, 52, 56, 58, 59, 66, 68)Note: Testing performed by [employer] On[employer]arity HR-HPV analysis. Clinical correlation is advised. This HPV test was performed at [facility], [address] [place] [address]. This test has been FDA approved for both SurePath and ThinPrep cervical cytology specimens. The accuracy and precision of this test for all other specimen sources has been verified in the Cytopathology Laboratory of the [facility] and has not been cleared or approved by the U.S. Food and Drug Administration. Clinical correlation is advised. [facility] Conversion Type (Conversion Source) 04/12/2024 04/15/2024 9:41 AM EDT Rosa CALZADA CYTOLOGY ORDERABLES Ed ited Result - Final [facility] [address] [place] [address] from Last 3 Months or Most Recently Relevant to Health Maintenance Insurance [address] [place] [address] [facility] [employer]CO [facility] [place] [id number] Care Teams Winding Department Supervisor Relationship Specialty Start Date End Date [facility] [address] [place] [address] PCP - General 08/12/20 Additional Source Comments The information contained in this document represents components of the legal health record. It is not the complete legal health record.[facility]
--- OUTSIDE RECORDS SUMMARY | 2025-06-18 20:13 | XMS_ITS | Encounter Summary ---
Author Organization [employer] Address 75 [facility] [address]t [place] [address] Care Team Providers Care Deputy Fire Chief Name Role Phone Saul Nelia HARDBOARD GRINDER Primary Care Provider [phone] Encounter Details Date Type Department Care Team (Late st Contact Info) Description 04/18/2024 Orders Only [place] [facility] Information Management [address] [place] [address] Provider, MD Wesley Social History Tobacco Use [...] 1:00 PM EST Office Visit [facility] OPTOMETRY [address] [place] [address] Joseph, Radha, OD [address] [place] [address] 09/10/2025 11:15 AM EST Office Visit [facility] MEDICINE [address] [place] [address] Nelia Hughes FNP [address] [place] [address] documented as of this encounter Visit Diagnoses Not on filedocumented in this encounter Additional Health Concerns Assessment Noted Time PHQ-9 Depression Total Score: 0 03/14/20 23 2:29 PM EDT documented as of this encounter Care Teams Deputy Fire Chief Relationship Specialty Start Date End Date Nelia Hughes FNP [address] [place] [address] PCP - General Family Medicine 08/26/24 documented as of this encounter
--- OUTSIDE RECORDS SUMMARY | 2025-06-18 20:13 | XMS_ITS | Encounter Summary ---
Author Organization [employer] Address 75 [facility] [address] [place] [address] Care Team Providers Care Program Technician Name Role Phone Saul Nelia MANAGER SOLUTION Primary Care Provider [phone] Encounter Details Date Type Department Care Team (Late st Contact Info) Description 04/17/2024 Orders Only [place] [facility] Information Management [address] [place] [address] Provider, MD Wesley Social History Tobacco Use [...] Description 08/05/2025 1:00 PM EST Office Visit [facility] OPTOMETRY [address] [place] [address] Joseph, Radha, OD [address] [place] [address] 09/10/2025 11:15 AM EST Office Visit [facility] MEDICINE [address] [place] [address] Nelia Hughes FNP [address] [place] [address] documented as of this encounter Visit Diagnoses Not on filedocumented in this encounter Additional Health Concerns Assessment Noted Time PHQ-9 Depression Total Score: 0 03/14/20 23 2:29 PM EDT documented as of this encounter Care Teams Program Technician Relationship Specialty Start Date End Date Nelia Hughes FNP [address] [place] [address] PCP - General Family Medicine 08/26/24 documented as of this encounter
--- OUTSIDE RECORDS SUMMARY | 2025-06-18 20:13 | XMS_ITS | Encounter Summary ---
Author Organization [employer] Address 75 [facility] 7t [place] [address] Care Team Providers Care Furniture Maker Name Role Phone Alyssa Soler FUNDRAISING COORDINATOR Primary Care Provider Tania Fierro Primary Care Provider [phone] [facility] FUNDRAISING COORDINATOR Primary Care Provider [phone] Reason for Visit * Reason Onset Date Comments triage 10/12/2022 Encounter Details Date Type Department Care Team ([facility] st Contact Info) Description 10/12/2022 Telephone [facility] MEDICINE [address] [place], [place] [phone] Alyssa Soler FNP triage Social History Tobacco Use Types Packs/Day [...] with plan. * Telephone Encounter - Sterling Makos - 10/12/2022 1:46 PM EST Symptom: Medication Question Outcome: Schedule an urgent appointment (within 4 hours) or talk to a nurse or provider soon Reason: New prescription question The caller accepted this outcome documented in this encounter Plan of Treatment Upcoming Encounters Date Type Department Care Team (Late st Contact Info) Description 08/05/2025 1:00 PM EST Office Visit [facility] OPTOMETRY [address] [place] [address] Joseph, Radha, OD [address] [place] [address] 09/10/2025 11:15 AM EST Office Visit [facility] MEDICINE [address] [place] [address] Nelia Hughes FNP [address] [place] [address] documented as of this encounter Visit Diagnoses Not on filedocumented in this encounter Care Teams Furniture Maker Relationship Specialty Start Date End Date Alyssa Soler FNP PCP - General Family Medicine 02/22/22 05/24/23 Tania Espinoza ANP [address] [place] [address] PCP - General Family Medicine 05/25/23 11/01/23 Nelia Hughes FNP [address] [place] [address] PCP - General Family Medicine 08/26/24 documented as of this encounter
--- OUTSIDE RECORDS SUMMARY | 2025-06-18 20:13 | XMS_ITS | Encounter Summary ---
Author Organization [facility] Address [address] [facility] [address] [place] [address] Phone Care Team Providers Care Health Facilities Surveyor Name Role Phone [facility], [facility] Primary Care Provider Encounter Details Date Type Department Care Team (Latest Contact Info) Description 03/27/2024 Ancillary Orders [facility] [address] [place] [address] [place] [address] Hui Ferrer, [facility] [address] [facility], [facility] [address] [place] [address] [email or web address] Hx of shoulder dystocia in [...] EGA: 16 weeks 2 day(s) Ultrasound BANDAR: [id number] Established BANDAR: [id number] BPD: 3.11 cm, consistent with 15 weeks [...] fetus with normal fluid. Procedure Note Hebert uDvall MD - 03/27/2024 Procedure: US OB GREATER [...] EGA: 16 weeks 2 day(s) Ultrasound BANDAR: [id number] Established BANDAR: [id number] BPD: 3.11 cm, consistent with 15 weeks [...] trimester documented in this encounter Care Teams Health Facilities Surveyor Relationship Specialty Start Date End Date [facility] [address] [place] [address] PCP - General 08/12/20 documented as of this encounter Additional Source Comments The information contained in this document represents components of the legal health record. It is not the complete legal health record.[facility]
[2025-06-19 05:16] LABS: CT PCR NOT DETECTED (Not Detect.); NG PCR NOT DETECTED (Not Detect.)
== END 2025-06-18 16:26 | disposition home or self-care (01) ==
LOC: HO.HHCLNP 16:25
PROVIDERS: Visit Provider Registered Nurse
DX: Z20.2 Contact with and (suspected) exposure to infections with a predominantly sexual mode of transmission (principal)
CPT/HCPCS: 87491; 87591